=== PATIENT | male | born 1950 | race Caucasian/White ===

== ENCOUNTER → 2016-08-15 | Outpatient (CLI) | payer MEDICARE ==
[~2016-08-15] MED LIST: COREG3.125 MG PO; MULTIPLE VITAMI1 TAB PO
[2016-08-15 09:27] LABS: EST GLOM FILT AFRICAN AMERICAN > 60 ml/min
== END | disposition home or self-care (01) ==
LOC: CT 08:45 → LAB 08:45 → CT 09:00
PROVIDERS: Urology
DX: N20.0 Calculus of kidney (principal); R31.9 Hematuria, unspecified; R35.0 Frequency of micturition; N40.0 Benign prostatic hyperplasia without lower urinary tract symptoms; K76.89 Other specified diseases of liver; N21.1 Calculus in urethra

== ENCOUNTER → 2017-05-10 | Outpatient (CLI) | payer MEDICARE ==
[2017-05-10 10:02] LABS: BASO % 0.2 % (0.0-1.0); EOS # 0.1 10*3/uL (0.0-0.4); HEMATOCRIT 39.4 % (42.0-52.0); HEMOGLOBIN 13.2 g/dl (14.0-18.0); LYMPH # 1.1 10*3/uL (1.3-4.4); LYMPH % 20.7 % (27.0-41.0); MEAN CELL VOLUME 92.1 fl (80.0-94.0); MEAN CORPUSCULAR HGB 30.8 pg (27.0-31.0); MEAN CORPUSCULAR HGB CONC 33.5 g/dl (33.0-37.0); MEAN PLATELET VOLUME 10.4 fl (9.6-12.3); MONO # 0.4 10*3/uL (0.1-1.0); MONO % 7.2 % (3.0-9.0); NEUT # 3.6 10*3/uL (2.3-7.9); NEUT % 70.7 % (47.0-73.0); PLATELET COUNT AUTOMATED 163 10*3/uL (130-400); RED BLOOD COUNT 4.28 10*6/uL (4.50-5.90); RED CELL DISTRI WIDTH 12.8 % (0-14.5); WHITE BLOOD COUNT 5.1 10*3/uL (4.8-10.8)
[2017-05-10 10:05] LABS: ALBUMIN 3.9 gm/dl (3.1-4.5); ALKALINE PHOSPHATASE 81 U/L (45-117); BUN 16 mg/dl (7-24); CHLORIDE 106 mmol/L (98-107); CREATININE 1.11 mg/dL (0.70-1.30); SGOT/AST 15 IU/L (3-35); SGPT/ALT 21 U/L (12-78); SODIUM 140 mmol/L (136-145); TOTAL PROTEIN 7.5 gm/dL (6.4-8.2)
[2017-05-10 11:36] LABS: BILIRUBIN NEGATIVE (NEGATIVE); BLOOD TRACE-LYSED (NEGATIVE); CLARITY CLOUDY (CLEAR); COLOR YELLOW (YELLOW); GLUCOSE NEGATIVE (NEGATIVE); KETONE NEGATIVE (NEGATIVE); LEUKO ESTERASE 1+ (NEGATIVE); NITRITE NEGATIVE (NEGATIVE); PH 6.5 (5.0-9.0); SPECIFIC GRAVITY <= 1.005 (1.005-1.030)
[2017-05-10 12:31] LABS: RBC 16-20 rbc/hpf (0-2); WBC 51-100 wbc/hpf (0-5)
[2017-05-10 12:32] LABS: BACTERIA 3+; CALCIUM OXALATE CRYSTALS 1+
== END | disposition home or self-care (01) ==
LOC: CT 09:00 → LAB 09:00
PROVIDERS: Urology
DX: N20.0 Calculus of kidney (principal); D40.0 Neoplasm of uncertain behavior of prostate; I10 Essential (primary) hypertension; N39.0 Urinary tract infection, site not specified

== ENCOUNTER → 2018-11-13 | Outpatient (CLI) | payer MEDICARE | END | disposition home or self-care (01) | LOC: CT 15:46 | DX: K57.30 Diverticulosis of large intestine without perforation or abscess without bleeding (principal); N28.89 Other specified disorders of kidney and ureter; R31.9 Hematuria, unspecified; I10 Essential (primary) hypertension; N13.30 Unspecified hydronephrosis; N20.0 Calculus of kidney; N40.0 Benign prostatic hyperplasia without lower urinary tract symptoms ==

== ENCOUNTER → 2019-07-31 | Outpatient (CLI) | payer MEDICARE ==
[2019-07-31 11:21] LABS: BASO % 0.2 % (0.0-1.0); EOS % 0.7 % (1.0-4.0); LYMPH % 21.1 % (27.0-41.0); MEAN CELL VOLUME 78.4 fl (80.0-94.0); MEAN CORPUSCULAR HGB CONC 29.3 g/dl (33.0-37.0); MEAN PLATELET VOLUME 9.4 fl (9.6-12.3); MONO # 0.4 10*3/uL (0.1-1.0); MONO % 9.1 % (3.0-9.0); NEUT # 3.1 10*3/uL (2.3-7.9); NEUT % 68.7 % (47.0-73.0); PLATELET COUNT AUTOMATED 225 10*3/uL (130-400); RED CELL DISTRI WIDTH 22.6 % (0-14.5); RETICULOCYTE % 0.83 % (0.50-2.50); WHITE BLOOD COUNT 4.5 10*3/uL (4.8-10.8)
[2019-07-31 11:40] LABS: BILIRUBIN NEGATIVE (NEGATIVE); BLOOD TRACE-INTACT (NEGATIVE); CLARITY CLOUDY (CLEAR); COLOR YELLOW (YELLOW); GLUCOSE NEGATIVE (NEGATIVE); KETONE NEGATIVE (NEGATIVE); LEUKO ESTERASE 3+ (NEGATIVE); NITRITE NEGATIVE (NEGATIVE); SPECIFIC GRAVITY 1.025 (1.005-1.030); UROBILINOGEN 0.2 E.U./dl (0.2-1.0); WBC TNTC wbc/hpf (0-5)
[2019-07-31 11:41] LABS: BACTERIA 4+; MUCOUS 1+
[2019-07-31 11:48] LABS: ALKALINE PHOSPHATASE 72 U/L (45-117); BUN 22 mg/dl (7-24); CHLORIDE 108 mmol/L (98-107); CHOLESTEROL 178 mg/dL (<200); CREATININE 1.14 mg/dL (0.70-1.30); GAMMA GLUTAMYL TRANSPEPTIDASE 17 U/L (15-85); HDL CHOLESTEROL 76 mg/dl (40-60); IRON 25 ug/dL (65-175); LDL CHOLESTEROL 88 mg/dL (9-159); POTASSIUM 4.5 mmol/L (3.5-5.1); SGOT/AST 24 IU/L (3-35); SGPT/ALT 31 U/L (12-78); SODIUM 140 mmol/L (136-145); TOTAL IRON BINDING CAPACITY 426 ug/dl (250-450); TRIGLYCERIDES 71 mg/dl (<150); VLDL CHOLESTEROL 14 mg/dL (6-40)
[2019-07-31 11:55] LABS: CPK 102 U/L (39-308); THYROID STIM HORMONE (HS) 0.948 uIU/ml (0.358-4.75); TOTAL PROTEIN 7.8 gm/dL (6.4-8.2)
[2019-07-31 12:15] LABS: VITAMIN D, 25-HYDROXY 15.8 ng/mL (30-100)
[2019-07-31 12:16] LABS: FERRITIN 4.8 ng/mL (22.0-322.0)
== END | disposition home or self-care (01) ==
LOC: LAB 10:27
PROVIDERS: Family Medicine
DX: Z12.5 Encounter for screening for malignant neoplasm of prostate (principal); E55.9 Vitamin D deficiency, unspecified; R53.83 Other fatigue; R79.89 Other specified abnormal findings of blood chemistry; D40.0 Neoplasm of uncertain behavior of prostate

== ENCOUNTER → 2019-08-20 | Outpatient (CLI) | payer MEDICARE | END | disposition home or self-care (01) | LOC: CT 09:32 | DX: N21.0 Calculus in bladder (principal); N28.1 Cyst of kidney, acquired; K57.90 Diverticulosis of intestine, part unspecified, without perforation or abscess without bleeding; K40.90 Unilateral inguinal hernia, without obstruction or gangrene, not specified as recurrent; K76.89 Other specified diseases of liver; M47.816 Spondylosis without myelopathy or radiculopathy, lumbar region; Z90.49 Acquired absence of other specified parts of digestive tract ==

== ENCOUNTER → 2019-10-24 | Outpatient (CLI) | payer MEDICARE ==
[~2019-10-24] MED LIST changes: +AMLODIPINE BESY10 MG PO; +ATORVASTATIN CA10 M1 PO; +CARBIDOPA-LEVO1 EAC2 PO; +COZAAR25 M1 PO; +NEUPRO1 EAC4 TD
== END | disposition home or self-care (01) ==
LOC: COVID19 00:31
DX: Z11.59 Encounter for screening for other viral diseases (principal)

== ENCOUNTER → 2019-10-31 | Day surgery (SDC) | payer MEDICARE ==
[~2019-10-31] VITALS: Ht 180.3 cm; Wt 80.3 kg
[2019-10-31 07:30] VITALS: BP 137/64
[2019-10-31 08:57] VITALS: BP 124/84
[2019-10-31 09:12] VITALS: BP 137/86
[2019-10-31 09:27] VITALS: BP 136/88
--- NOTE | 2019-10-31 09:33 | NUR ---
iv fluids discontinued at 0927.
== END | disposition home or self-care (01) ==
LOC: SDC 10-27 08:45
DX: D64.9 Anemia, unspecified (principal); K57.30 Diverticulosis of large intestine without perforation or abscess without bleeding; K64.8 Other hemorrhoids; K44.9 Diaphragmatic hernia without obstruction or gangrene; K29.70 Gastritis, unspecified, without bleeding; I10 Essential (primary) hypertension; I48.91 Unspecified atrial fibrillation; E78.00 Pure hypercholesterolemia, unspecified; Z79.899 Other long term (current) drug therapy; Z98.890 Other specified postprocedural states

== ENCOUNTER → 2019-12-18 | Outpatient (CLI) | payer MEDICARE ==
[2019-12-18 11:21] LABS: BASO % 0.2 % (0.0-1.0); EOS # 0.1 10*3/uL (0.0-0.4); EOS % 1.8 % (1.0-4.0); LYMPH # 1.2 10*3/uL (1.3-4.4); LYMPH % 20.6 % (27.0-41.0); MEAN CELL VOLUME 84.3 fl (80.0-94.0); MEAN CORPUSCULAR HGB 25.6 pg (27.0-31.0); MEAN CORPUSCULAR HGB CONC 30.3 g/dl (33.0-37.0); MEAN PLATELET VOLUME 10.2 fl (9.6-12.3); MONO # 0.6 10*3/uL (0.1-1.0); MONO % 10.8 % (3.0-9.0); NEUT # 3.7 10*3/uL (2.3-7.9); NEUT % 66.2 % (47.0-73.0); PLATELET COUNT AUTOMATED 203 10*3/uL (130-400); RED BLOOD COUNT 3.44 10*6/uL (4.50-5.90); RED CELL DISTRI WIDTH 16.5 % (0-14.5); RETICULOCYTE % 0.95 % (0.50-2.50); WHITE BLOOD COUNT 5.6 10*3/uL (4.8-10.8)
[2019-12-18 11:50] LABS: ALBUMIN 3.6 gm/dl (3.1-4.5); BUN 23 mg/dl (7-24); CHLORIDE 109 mmol/L (98-107); CHOLESTEROL 126 mg/dL (<200); CREATININE 1.22 mg/dL (0.70-1.30); GAMMA GLUTAMYL TRANSPEPTIDASE 13 U/L (15-85); HDL CHOLESTEROL 57 mg/dl (40-60); IRON 25 ug/dL (65-175); LDL CHOLESTEROL 55 mg/dL (9-159); POTASSIUM 4.3 mmol/L (3.5-5.1); SGOT/AST 5 IU/L (3-35); SGPT/ALT 8 U/L (12-78); SODIUM 139 mmol/L (136-145); TOTAL IRON BINDING CAPACITY 399 ug/dl (250-450); TOTAL PROTEIN 7.4 gm/dL (6.4-8.2); TRIGLYCERIDES 69 mg/dl (<150); VLDL CHOLESTEROL 14 mg/dL (6-40)
[2019-12-18 11:56] LABS: ALKALINE PHOSPHATASE 66 U/L (45-117); THYROID STIM HORMONE (HS) 0.779 uIU/ml (0.358-4.75)
[2019-12-18 14:13] LABS: BILIRUBIN Negative (Negative); BLOOD Negative (Negative); CLARITY Cloudy (Clear); COLOR Dark Yellow (Yellow); GLUCOSE Negative (Negative); KETONE Trace (Negative); LEUKO ESTERASE 2+ (Negative); NITRITE Negative (Negative); UROBILINOGEN 0.2 E.U./dl (0.0-1.0)
[2019-12-18 15:03] LABS: BACTERIA 2+; WBC 51-100 wbc/hpf (0-5)
== END | disposition home or self-care (01) ==
LOC: LAB 10:44
PROVIDERS: ATTEND Family Medicine
DX: E78.5 Hyperlipidemia, unspecified (principal); R74.8 Abnormal levels of other serum enzymes; R79.89 Other specified abnormal findings of blood chemistry; R53.83 Other fatigue

== ENCOUNTER → 2020-01-16 | Outpatient (CLI) | payer MEDICARE ==
[2020-01-16 11:44] LABS: BASO % 0.2 % (0.0-1.0); EOS # 0.1 10*3/uL (0.0-0.4); EOS % 1.1 % (1.0-4.0); HEMATOCRIT 30.6 % (42.0-52.0); LYMPH # 0.8 10*3/uL (1.3-4.4); LYMPH % 11.3 % (27.0-41.0); MEAN CELL VOLUME 85.2 fl (80.0-94.0); MEAN CORPUSCULAR HGB 25.3 pg (27.0-31.0); MEAN CORPUSCULAR HGB CONC 29.7 g/dl (33.0-37.0); MEAN PLATELET VOLUME 9.6 fl (9.6-12.3); MONO # 0.7 10*3/uL (0.1-1.0); MONO % 10.6 % (3.0-9.0); NEUT # 5.1 10*3/uL (2.3-7.9); NEUT % 76.5 % (47.0-73.0); PLATELET COUNT AUTOMATED 234 10*3/uL (130-400); RED BLOOD COUNT 3.59 10*6/uL (4.50-5.90); RED CELL DISTRI WIDTH 16.4 % (0-14.5); WHITE BLOOD COUNT 6.6 10*3/uL (4.8-10.8)
== END | disposition home or self-care (01) ==
LOC: LAB 11:05
PROVIDERS: ATTEND Internal Medicine Gastroenterology
DX: D50.0 Iron deficiency anemia secondary to blood loss (chronic) (principal)

== ENCOUNTER → 2020-01-27 | Outpatient (CLI) | payer MEDICARE ==
[2020-01-28 13:11] LABS: PROSTATE SPECIFIC AG FREE 0.6 ng/mL; PROSTATE SPECIFIC AG, SERUM 4.8 ng/mL (0.0-4.0)
== END | disposition home or self-care (01) ==
LOC: LAB 09:56
PROVIDERS: ATTEND Urology
DX: C61 Malignant neoplasm of prostate (principal)

== ENCOUNTER → 2020-04-14 | Outpatient (CLI) | payer MEDICARE | END | disposition home or self-care (01) | LOC: RAD 14:13 | PROVIDERS: ATTEND Family Medicine | DX: S80.01XA Contusion of right knee, initial encounter (principal); M79.89 Other specified soft tissue disorders; X58.XXXA Exposure to other specified factors, initial encounter; Y93.89 Activity, other specified; Y92.89 Other specified places as the place of occurrence of the external cause; Y99.8 Other external cause status ==

== ENCOUNTER → 2020-06-03 | Outpatient (CLI) | payer MEDICARE ==
[2020-06-03 12:24] LABS: BASO % 0.3 % (0.0-1.0); EOS # 0.1 10*3/uL (0.0-0.4); EOS % 0.8 % (1.0-4.0); HEMATOCRIT 34.5 % (42.0-52.0); LYMPH % 16.4 % (27.0-41.0); MEAN CELL VOLUME 88.5 fl (80.0-94.0); MEAN CORPUSCULAR HGB CONC 32.8 g/dl (33.0-37.0); MONO # 0.6 10*3/uL (0.1-1.0); MONO % 9.4 % (3.0-9.0); NEUT # 4.3 10*3/uL (2.3-7.9); NEUT % 72.9 % (47.0-73.0); PLATELET COUNT AUTOMATED 185 10*3/uL (130-400); RED CELL DISTRI WIDTH 18.5 % (0-14.5); WHITE BLOOD COUNT 5.9 10*3/uL (4.8-10.8)
[2020-06-03 13:00] LABS: ALBUMIN 3.4 gm/dl (3.1-4.5); ALKALINE PHOSPHATASE 79 U/L (45-117); BUN 24 mg/dl (7-24); CHLORIDE 109 mmol/L (98-107); CREATININE 1.23 mg/dL (0.70-1.30); POTASSIUM 3.6 mmol/L (3.5-5.1); SGOT/AST 14 IU/L (3-35); SGPT/ALT 7 U/L (12-78); SODIUM 142 mmol/L (136-145); TOTAL PROTEIN 7.4 gm/dL (6.4-8.2)
[2020-06-04 13:07] LABS: PROSTATE SPECIFIC AG FREE 0.87 ng/mL; PROSTATE SPECIFIC AG, SERUM 6.3 ng/mL (0.0-4.0)
== END | disposition home or self-care (01) ==
LOC: LAB 11:44
PROVIDERS: ATTEND Urology
DX: C61 Malignant neoplasm of prostate (principal); R53.83 Other fatigue

== ENCOUNTER → 2020-07-23 | Outpatient (CLI) | payer MEDICARE ==
[2020-07-25 07:06] LABS: PROSTATE SPECIFIC AG FREE 1.47 ng/mL
== END | disposition home or self-care (01) ==
LOC: LAB 11:29
PROVIDERS: ATTEND Urology
DX: C61 Malignant neoplasm of prostate (principal)

== ENCOUNTER → 2020-08-11 | Outpatient (CLI) | payer MEDICARE ==
[2020-08-11 11:22] LABS: BASO % 0.2 % (0.0-1.0); EOS % 0.6 % (1.0-4.0); HEMATOCRIT 34.2 % (42.0-52.0); LYMPH # 0.9 10*3/uL (1.3-4.4); LYMPH % 14.2 % (27.0-41.0); MEAN CELL VOLUME 96.1 fl (80.0-94.0); MEAN CORPUSCULAR HGB 31.7 pg (27.0-31.0); MEAN PLATELET VOLUME 10.2 fl (9.6-12.3); MONO # 0.6 10*3/uL (0.1-1.0); MONO % 8.6 % (3.0-9.0); NEUT # 4.9 10*3/uL (2.3-7.9); NEUT % 75.5 % (47.0-73.0); PLATELET COUNT AUTOMATED 194 10*3/uL (130-400); RED BLOOD COUNT 3.56 10*6/uL (4.50-5.90); RED CELL DISTRI WIDTH 12.8 % (0-14.5); WHITE BLOOD COUNT 6.5 10*3/uL (4.8-10.8)
[2020-08-11 11:31] LABS: ACT PARTIAL THROMBO TIME 26.3 SECONDS (20.0-32.1)
[2020-08-11 11:51] LABS: ALBUMIN 3.6 gm/dl (3.1-4.5); ALKALINE PHOSPHATASE 75 U/L (45-117); BUN 38 mg/dl (7-24); CHLORIDE 107 mmol/L (98-107); CREATININE 1.48 mg/dL (0.70-1.30); POTASSIUM 3.8 mmol/L (3.5-5.1); SGOT/AST 13 IU/L (3-35); SODIUM 140 mmol/L (136-145); TOTAL PROTEIN 7.7 gm/dL (6.4-8.2)
[2020-08-11 11:52] LABS: SGPT/ALT < 6 U/L (12-78)
== END | disposition home or self-care (01) ==
LOC: LAB 10:53
PROVIDERS: ATTEND Urology
DX: Z01.818 Encounter for other preprocedural examination (principal); C61 Malignant neoplasm of prostate; D68.8 Other specified coagulation defects

== ENCOUNTER 2020-09-10 11:39 | Inpatient (IN) | payer MEDICARE ==
[~2020-09-10] VITALS: Ht 182.8 cm; Wt 81.6 kg
[~2020-09-10 11:39] MED LIST changes: +CARVEDILOL25 MG PO; +FINASTERIDE5 M1 PO; +HYDROCHLOROTH12.5 M2 PO; +LOSARTAN POTASS25 M1 PO; +OMEPRAZOLE MAGN20 MG PO; +RYTARY ER 61.21 EACH PO; +SERTRALINE HYDR25 MG PO; +STALEVO 200 TA1 EACH PO; +TAMSULOSIN HCL0.4 MG PO
[2020-09-10 18:34] VITALS: BP 125/70
[2020-09-10 20:00] VITALS: BP 125/70
[2020-09-11 06:18] LABS: ALBUMIN 2.9 gm/dl (3.1-4.5); ALKALINE PHOSPHATASE 61 U/L (45-117); BUN 5 mg/dl (7-24); CHLORIDE 106 mmol/L (98-107); POTASSIUM 3.6 mmol/L (3.5-5.1); SGOT/AST 16 IU/L (3-35); SGPT/ALT 18 U/L (12-78); SODIUM 137 mmol/L (136-145); TOTAL PROTEIN 6.5 gm/dL (6.4-8.2)
[2020-09-11 07:34] VITALS: BP 155/83
[2020-09-11 19:12] VITALS: BP 108/52
[2020-09-12 07:18] VITALS: BP 120/64
[2020-09-12 20:16] VITALS: BP 100/62
[2020-09-13 07:03] VITALS: BP 109/67
[2020-09-13 19:04] VITALS: BP 117/81
[2020-09-13 22:35] LABS: BILIRUBIN Negative (Negative); BLOOD 2+ (Negative); CLARITY Turbid (Clear); COLOR Orange (Yellow); GLUCOSE Negative (Negative); KETONE Negative (Negative); LEUKO ESTERASE 2+ (Negative); NITRITE Positive (Negative); UROBILINOGEN 0.2 E.U./dl (0.0-1.0)
[2020-09-13 22:47] LABS: BACTERIA 3+; RBC TNTC rbc/hpf (0-2); WBC TNTC wbc/hpf (0-5)
[2020-09-14] MEDS ORDERED: REMERON15 M2 PO (07:52)
[2020-09-14] MEDS ORDERED: RISPERIDONE M-TA1 MG BC (07:54)
[2020-09-14 08:20] LABS: BASO % 0.1 % (0.0-1.0); EOS % 0.4 % (1.0-4.0); HEMATOCRIT 33.6 % (42.0-52.0); LYMPH # 0.9 10*3/uL (1.3-4.4); LYMPH % 10.5 % (27.0-41.0); MEAN CELL VOLUME 97.4 fl (80.0-94.0); MEAN CORPUSCULAR HGB 31.9 pg (27.0-31.0); MEAN CORPUSCULAR HGB CONC 32.7 g/dl (33.0-37.0); MEAN PLATELET VOLUME 10.1 fl (9.6-12.3); MONO # 0.6 10*3/uL (0.1-1.0); MONO % 7.7 % (3.0-9.0); NEUT # 6.6 10*3/uL (2.3-7.9); NEUT % 80.6 % (47.0-73.0); PLATELET COUNT AUTOMATED 187 10*3/uL (130-400); RED BLOOD COUNT 3.45 10*6/uL (4.50-5.90); RED CELL DISTRI WIDTH 14.2 % (0-14.5); WHITE BLOOD COUNT 8.1 10*3/uL (4.8-10.8)
[2020-09-14 08:36] LABS: ALBUMIN 2.8 gm/dl (3.1-4.5); CREATININE 2.6 mg/dL (0.70-1.30); POTASSIUM 3.1 mmol/L (3.5-5.1); TOTAL PROTEIN 6.7 gm/dL (6.4-8.2)
[2020-09-14] MEDS ORDERED: NUPLAZID34 MG PO (13:35)
== END 2020-09-14 08:15 | disposition short-term general hospital (02) | DRG 56 ==
LOC: 3N 11:39
PROVIDERS: Internal Medicine; Registered Nurse; ADMIT Psychiatry & Neurology Psychiatry; ATTEND Psychiatry & Neurology Psychiatry
DX: G20 Parkinson's disease (principal); F02.80 Dementia in other diseases classified elsewhere, unspecified severity, without behavioral disturbance, psychotic disturbance, mood disturbance, and anxiety; G93.41 Metabolic encephalopathy; F63.81 Intermittent explosive disorder; E44.0 Moderate protein-calorie malnutrition; N39.0 Urinary tract infection, site not specified; E86.0 Dehydration; F32.9 Major depressive disorder, single episode, unspecified; D50.9 Iron deficiency anemia, unspecified; K21.9 Gastro-esophageal reflux disease without esophagitis; C61 Malignant neoplasm of prostate; D53.9 Nutritional anemia, unspecified; I10 Essential (primary) hypertension; I95.9 Hypotension, unspecified; E87.8 Other disorders of electrolyte and fluid balance, not elsewhere classified; R73.9 Hyperglycemia, unspecified; R80.9 Proteinuria, unspecified; R82.4 Acetonuria; R31.0 Gross hematuria; Z85.46 Personal history of malignant neoplasm of prostate; Z68.24 Body mass index [BMI] 24.0-24.9, adult

== ENCOUNTER 2020-09-14 08:23 | Inpatient (IN) | payer MEDICARE ==
[~2020-09-14] VITALS: Ht 180.3 cm; Wt 81.0 kg
[2020-09-14 08:20] VITALS: BP 99/53
[~2020-09-14 08:23] MED LIST changes: +REMERON15 M2 PO; +RISPERIDONE M-TA1 MG BC
[2020-09-14 12:00] VITALS: BP 112/57
[2020-09-14] MEDS ORDERED: NUPLAZID34 MG PO (13:35)
[2020-09-14 16:00] VITALS: BP 96/53
[2020-09-14 16:05] VITALS: BP 100/60
[2020-09-14 20:00] VITALS: BP 95/52
[2020-09-15] VITALS: BP 91/50
[2020-09-15 06:27] LABS: BASO % 0.1 % (0.0-1.0); EOS # 0.1 10*3/uL (0.0-0.4); EOS % 0.9 % (1.0-4.0); HEMATOCRIT 29.8 % (42.0-52.0); LYMPH % 15.2 % (27.0-41.0); MEAN CELL VOLUME 97.7 fl (80.0-94.0); MEAN CORPUSCULAR HGB 31.1 pg (27.0-31.0); MEAN CORPUSCULAR HGB CONC 31.9 g/dl (33.0-37.0); MEAN PLATELET VOLUME 10.3 fl (9.6-12.3); MONO # 0.7 10*3/uL (0.1-1.0); MONO % 10.9 % (3.0-9.0); NEUT # 4.8 10*3/uL (2.3-7.9); NEUT % 72.2 % (47.0-73.0); PLATELET COUNT AUTOMATED 143 10*3/uL (130-400); RED BLOOD COUNT 3.05 10*6/uL (4.50-5.90); RED CELL DISTRI WIDTH 13.9 % (0-14.5); WHITE BLOOD COUNT 6.7 10*3/uL (4.8-10.8)
[2020-09-15 06:57] LABS: POTASSIUM 3.1 mmol/L (3.5-5.1)
[2020-09-15 07:09] LABS: ALBUMIN 2.5 gm/dl (3.1-4.5); CREATININE 1.5 mg/dL (0.70-1.30); TOTAL PROTEIN 5.9 gm/dL (6.4-8.2)
[2020-09-15 08:00] VITALS: BP 96/51
[2020-09-15 12:00] VITALS: BP 102/59
[2020-09-15 16:00] VITALS: BP 148/80
[2020-09-15 20:00] VITALS: BP 151/79
[2020-09-16] VITALS: BP 144/73
[2020-09-16 08:00] VITALS: BP 155/71
[2020-09-16 09:02] LABS: CHLORIDE 111 mmol/L (98-107); POTASSIUM 3.7 mmol/L (3.5-5.1); SODIUM 142 mmol/L (136-145)
[2020-09-16 09:28] LABS: BUN 18 mg/dl (7-24); CREATININE 0.86 mg/dL (0.70-1.30)
[2020-09-16 12:00] VITALS: BP 115/62
[2020-09-16 16:00] VITALS: BP 121/74
[2020-09-16 20:00] VITALS: BP 124/74
[2020-09-17] VITALS: BP 127/68
[2020-09-17 05:46] LABS: BUN 19 mg/dl (7-24); CHLORIDE 110 mmol/L (98-107); CREATININE 0.75 mg/dL (0.70-1.30); POTASSIUM 3.6 mmol/L (3.5-5.1); SODIUM 141 mmol/L (136-145)
[2020-09-17 06:30] LABS: BASO % 0.3 % (0.0-1.0); EOS # 0.2 10*3/uL (0.0-0.4); EOS % 3.3 % (1.0-4.0); HEMATOCRIT 28.1 % (42.0-52.0); LYMPH % 16.3 % (27.0-41.0); MEAN CELL VOLUME 98.3 fl (80.0-94.0); MEAN CORPUSCULAR HGB 31.5 pg (27.0-31.0); MEAN PLATELET VOLUME 10.4 fl (9.6-12.3); MONO # 0.7 10*3/uL (0.1-1.0); MONO % 11.4 % (3.0-9.0); NEUT # 4.2 10*3/uL (2.3-7.9); NEUT % 68.2 % (47.0-73.0); PLATELET COUNT AUTOMATED 125 10*3/uL (130-400); RED BLOOD COUNT 2.86 10*6/uL (4.50-5.90); RED CELL DISTRI WIDTH 13.8 % (0-14.5); WHITE BLOOD COUNT 6.1 10*3/uL (4.8-10.8)
[2020-09-17 08:00] VITALS: BP 123/75
[2020-09-17 12:00] VITALS: BP 78/50
[2020-09-17 16:00] VITALS: BP 110/51
[2020-09-17 20:00] VITALS: BP 102/64
[2020-09-18] VITALS: BP 131/83
[2020-09-18 08:00] VITALS: BP 117/71
[2020-09-18 12:00] VITALS: BP 107/75
[2020-09-18 16:00] VITALS: BP 114/57
[2020-09-18 20:00] VITALS: BP 107/69
[2020-09-19] VITALS: BP 126/74
[2020-09-19 08:00] VITALS: BP 120/72
[2020-09-19 16:00] VITALS: BP 106/66
[2020-09-19 20:00] VITALS: BP 98/60
[2020-09-20] VITALS: BP 117/70
[2020-09-20 05:46] LABS: BUN 26 mg/dl (7-24); CHLORIDE 109 mmol/L (98-107); CREATININE 0.91 mg/dL (0.70-1.30); POTASSIUM 3.8 mmol/L (3.5-5.1); SODIUM 140 mmol/L (136-145)
[2020-09-20 06:14] LABS: BASO % 0.4 % (0.0-1.0); EOS # 0.1 10*3/uL (0.0-0.4); EOS % 2.1 % (1.0-4.0); HEMATOCRIT 31.2 % (42.0-52.0); LYMPH # 0.9 10*3/uL (1.3-4.4); LYMPH % 15.4 % (27.0-41.0); MEAN CELL VOLUME 101.3 fl (80.0-94.0); MEAN CORPUSCULAR HGB 31.2 pg (27.0-31.0); MEAN CORPUSCULAR HGB CONC 30.8 g/dl (33.0-37.0); MEAN PLATELET VOLUME 10.7 fl (9.6-12.3); MONO # 0.7 10*3/uL (0.1-1.0); MONO % 11.6 % (3.0-9.0); NEUT # 3.9 10*3/uL (2.3-7.9); PLATELET COUNT AUTOMATED 148 10*3/uL (130-400); RED BLOOD COUNT 3.08 10*6/uL (4.50-5.90); RED CELL DISTRI WIDTH 13.6 % (0-14.5); WHITE BLOOD COUNT 5.6 10*3/uL (4.8-10.8)
[2020-09-20 08:00] VITALS: BP 80/46
[2020-09-20 12:00] VITALS: BP 80/40
[2020-09-20 16:47] VITALS: BP 116/56
[2020-09-20 20:00] VITALS: BP 122/64
[2020-09-21] VITALS: BP 109/54
[2020-09-21 08:00] VITALS: BP 98/50
[2020-09-21 12:00] VITALS: BP 90/68
[2020-09-21 16:00] VITALS: BP 137/77
[2020-09-21 20:00] VITALS: BP 100/50
[2020-09-22] VITALS: BP 131/62
[2020-09-22 08:00] VITALS: BP 140/82
[2020-09-22 12:00] VITALS: BP 100/54
[2020-09-22] MEDS ORDERED: RIVASTIGMINE1 EAC1 T (12:37)
[2020-09-22] MEDS ORDERED: XARE15TA PO (12:41)
[2020-09-22 16:00] VITALS: BP 140/72
[2020-09-22 20:00] VITALS: BP 155/74
== END 2020-09-22 21:12 | DRG 314 ==
LOC: 4E 08:23
PROVIDERS: Family Medicine; Internal Medicine; Registered Nurse; ADMIT Internal Medicine; ATTEND Internal Medicine
DX: I95.9 Hypotension, unspecified (principal); N17.0 Acute kidney failure with tubular necrosis; G93.41 Metabolic encephalopathy; E43 Unspecified severe protein-calorie malnutrition; I82.401 Acute embolism and thrombosis of unspecified deep veins of right lower extremity; N30.01 Acute cystitis with hematuria; F23 Brief psychotic disorder; E86.0 Dehydration; C61 Malignant neoplasm of prostate; G20 Parkinson's disease; F02.80 Dementia in other diseases classified elsewhere, unspecified severity, without behavioral disturbance, psychotic disturbance, mood disturbance, and anxiety; Z20.822 Contact with and (suspected) exposure to COVID-19; F63.81 Intermittent explosive disorder; E87.6 Hypokalemia; D53.9 Nutritional anemia, unspecified; K21.9 Gastro-esophageal reflux disease without esophagitis; Z79.899 Other long term (current) drug therapy

== ENCOUNTER 2020-09-23 08:02 | Inpatient (IN) | payer MEDICARE ==
[~2020-09-23] VITALS: Ht 180.3 cm; Wt 84.4 kg
[2020-09-23] VITALS (7 sets, daily range): BP systolic 116–151; BP diastolic 61–88
[~2020-09-23 08:02] MED LIST changes: +NUPLAZID34 MG PO; +RIVASTIGMINE1 EAC1 T; +XARE15TA PO
[2020-09-23 08:52] LABS: BILIRUBIN Negative (Negative); BLOOD 2+ (Negative); CLARITY Clear (Clear); COLOR Yellow (Yellow); GLUCOSE Negative (Negative); KETONE Negative (Negative); LEUKO ESTERASE Trace (Negative); NITRITE Negative (Negative); UROBILINOGEN 0.2 E.U./dl (0.0-1.0)
[2020-09-23 08:58] LABS: BASO % 0.3 % (0.0-1.0); EOS # 0.1 10*3/uL (0.0-0.4); EOS % 2.2 % (1.0-4.0); HEMATOCRIT 29.3 % (42.0-52.0); LYMPH # 0.8 10*3/uL (1.3-4.4); LYMPH % 13.6 % (27.0-41.0); MEAN CELL VOLUME 97.7 fl (80.0-94.0); MEAN CORPUSCULAR HGB CONC 31.7 g/dl (33.0-37.0); MEAN PLATELET VOLUME 9.9 fl (9.6-12.3); MONO # 0.5 10*3/uL (0.1-1.0); MONO % 8.7 % (3.0-9.0); NEUT # 4.4 10*3/uL (2.3-7.9); NEUT % 74.5 % (47.0-73.0); PLATELET COUNT AUTOMATED 209 10*3/uL (130-400); RED CELL DISTRI WIDTH 13.7 % (0-14.5); WHITE BLOOD COUNT 5.9 10*3/uL (4.8-10.8)
[2020-09-23 09:06] LABS: BACTERIA 1+; RBC 41-50 rbc/hpf (0-2); WBC 31-40 wbc/hpf (0-5)
[2020-09-23 09:14] LABS: ALBUMIN 2.6 gm/dl (3.1-4.5); ALKALINE PHOSPHATASE 66 U/L (45-117); BUN 17 mg/dl (7-24); CHLORIDE 108 mmol/L (98-107); CREATININE 0.76 mg/dL (0.70-1.30); POTASSIUM 4.1 mmol/L (3.5-5.1); SGOT/AST 23 IU/L (3-35); SGPT/ALT 12 U/L (12-78); SODIUM 139 mmol/L (136-145); TOTAL PROTEIN 6.2 gm/dL (6.4-8.2)
[2020-09-23 09:22] LABS: TROPONIN I < 0.015 ng/ml (<0.045)
[2020-09-24] VITALS: BP 126/96
[2020-09-24 07:24] LABS: ALBUMIN 2.6 gm/dl (3.1-4.5); BUN 15 mg/dl (7-24); CHLORIDE 109 mmol/L (98-107); CREATININE 0.87 mg/dL (0.70-1.30); SGOT/AST 36 IU/L (3-35); SGPT/ALT 63 U/L (12-78); SODIUM 141 mmol/L (136-145); TOTAL PROTEIN 6.4 gm/dL (6.4-8.2)
[2020-09-24 07:25] LABS: ALKALINE PHOSPHATASE 72 U/L (45-117)
[2020-09-24 07:28] LABS: BASO % 0.2 % (0.0-1.0); EOS # 0.1 10*3/uL (0.0-0.4); LYMPH # 0.9 10*3/uL (1.3-4.4); LYMPH % 13.5 % (27.0-41.0); MEAN CELL VOLUME 98.7 fl (80.0-94.0); MEAN CORPUSCULAR HGB 31.3 pg (27.0-31.0); MEAN CORPUSCULAR HGB CONC 31.7 g/dl (33.0-37.0); MEAN PLATELET VOLUME 9.9 fl (9.6-12.3); MONO # 0.6 10*3/uL (0.1-1.0); MONO % 9.6 % (3.0-9.0); NEUT # 4.7 10*3/uL (2.3-7.9); NEUT % 73.8 % (47.0-73.0); PLATELET COUNT AUTOMATED 232 10*3/uL (130-400); RED BLOOD COUNT 3.04 10*6/uL (4.50-5.90); RED CELL DISTRI WIDTH 14.1 % (0-14.5); WHITE BLOOD COUNT 6.4 10*3/uL (4.8-10.8)
[2020-09-24 07:36] LABS: ACT PARTIAL THROMBO TIME 28.9 SECONDS (20.0-32.1); INTERNATIONAL NORM RATIO 1.1 (2.0-3.5)
[2020-09-24 08:00] VITALS: BP 143/64
[2020-09-24 12:00] VITALS: BP 97/54
[2020-09-24 16:00] VITALS: BP 163/72
[2020-09-24 20:00] VITALS: BP 124/59
[2020-09-25] VITALS: BP 144/81
[2020-09-25 08:00] VITALS: BP 143/63
[2020-09-25 12:00] VITALS: BP 81/42
[2020-09-25 15:20] VITALS: BP 88/44
[2020-09-25 16:00] VITALS: BP 101/63
[2020-09-26] VITALS: BP 90/58
[2020-09-26 05:54] LABS: ALBUMIN 2.5 gm/dl (3.1-4.5); BUN 18 mg/dl (7-24); CHLORIDE 112 mmol/L (98-107); POTASSIUM 3.8 mmol/L (3.5-5.1); SGOT/AST 39 IU/L (3-35); SGPT/ALT 24 U/L (12-78); SODIUM 142 mmol/L (136-145)
[2020-09-26 05:56] LABS: ALKALINE PHOSPHATASE 76 U/L (45-117)
[2020-09-26 06:21] LABS: BASO % 0.3 % (0.0-1.0); EOS # 0.1 10*3/uL (0.0-0.4); EOS % 2.1 % (1.0-4.0); HEMATOCRIT 29.7 % (42.0-52.0); LYMPH % 14.3 % (27.0-41.0); MEAN CELL VOLUME 100.3 fl (80.0-94.0); MEAN CORPUSCULAR HGB 31.1 pg (27.0-31.0); MEAN PLATELET VOLUME 9.9 fl (9.6-12.3); MONO # 0.6 10*3/uL (0.1-1.0); MONO % 8.9 % (3.0-9.0); NEUT % 73.2 % (47.0-73.0); PLATELET COUNT AUTOMATED 244 10*3/uL (130-400); RED BLOOD COUNT 2.96 10*6/uL (4.50-5.90); RED CELL DISTRI WIDTH 13.9 % (0-14.5); WHITE BLOOD COUNT 6.8 10*3/uL (4.8-10.8)
[2020-09-26 08:00] VITALS: BP 142/72
[2020-09-26 16:00] VITALS: BP 155/79
[2020-09-27] VITALS: BP 144/70
[2020-09-27 06:00] LABS: BASO % 0.2 % (0.0-1.0); EOS # 0.2 10*3/uL (0.0-0.4); EOS % 3.7 % (1.0-4.0); HEMATOCRIT 28.8 % (42.0-52.0); LYMPH # 1.1 10*3/uL (1.3-4.4); LYMPH % 19.5 % (27.0-41.0); MEAN CELL VOLUME 97.6 fl (80.0-94.0); MEAN CORPUSCULAR HGB 31.2 pg (27.0-31.0); MEAN CORPUSCULAR HGB CONC 31.9 g/dl (33.0-37.0); MEAN PLATELET VOLUME 9.7 fl (9.6-12.3); MONO # 0.5 10*3/uL (0.1-1.0); MONO % 9.1 % (3.0-9.0); NEUT # 3.8 10*3/uL (2.3-7.9); NEUT % 66.5 % (47.0-73.0); PLATELET COUNT AUTOMATED 244 10*3/uL (130-400); RED BLOOD COUNT 2.95 10*6/uL (4.50-5.90); RED CELL DISTRI WIDTH 13.8 % (0-14.5); WHITE BLOOD COUNT 5.7 10*3/uL (4.8-10.8)
[2020-09-27 06:20] LABS: ALBUMIN 2.5 gm/dl (3.1-4.5); ALKALINE PHOSPHATASE 70 U/L (45-117); BUN 12 mg/dl (7-24); CHLORIDE 111 mmol/L (98-107); CREATININE 0.85 mg/dL (0.70-1.30); POTASSIUM 3.5 mmol/L (3.5-5.1); SGOT/AST 34 IU/L (3-35); SGPT/ALT 12 U/L (12-78); SODIUM 141 mmol/L (136-145); TOTAL PROTEIN 6.1 gm/dL (6.4-8.2)
[2020-09-27 08:00] VITALS: BP 130/76
[2020-09-27 16:00] VITALS: BP 130/68
[2020-09-27 20:00] VITALS: BP 100/59
[2020-09-28] VITALS: BP 123/89
[2020-09-28 08:00] VITALS: BP 126/72
[2020-09-28 16:00] VITALS: BP 134/70
[2020-09-28 20:00] VITALS: BP 125/58
[2020-09-29] VITALS: BP 129/60
[2020-09-29 08:00] VITALS: BP 148/84; BP 157/85
[2020-09-29] MEDS ORDERED: Carafate1 GM PO (11:35)
[2020-09-29] MEDS ORDERED: PANTOPRAZOLE SO40 MG PO (11:35)
[2020-09-29 12:00] VITALS: BP 114/68; BP 90/58
== END 2020-09-29 16:52 | DRG 813 ==
LOC: ED 08:02 → EDHOLD 11:50 → 5E 11:50
PROVIDERS: Emergency Medicine; Internal Medicine; Student in an Organized Health Care Education/Training Program; ADMIT Internal Medicine; ATTEND Internal Medicine
DX: D68.32 Hemorrhagic disorder due to extrinsic circulating anticoagulants (principal); E43 Unspecified severe protein-calorie malnutrition; K92.2 Gastrointestinal hemorrhage, unspecified; I82.452 Acute embolism and thrombosis of left peroneal vein; I82.442 Acute embolism and thrombosis of left tibial vein; I82.541 Chronic embolism and thrombosis of right tibial vein; I82.551 Chronic embolism and thrombosis of right peroneal vein; Z20.822 Contact with and (suspected) exposure to COVID-19; R70.0 Elevated erythrocyte sedimentation rate; R00.1 Bradycardia, unspecified; E87.8 Other disorders of electrolyte and fluid balance, not elsewhere classified; C61 Malignant neoplasm of prostate; K21.9 Gastro-esophageal reflux disease without esophagitis; T45.515A Adverse effect of anticoagulants, initial encounter; G20 Parkinson's disease; D53.9 Nutritional anemia, unspecified; F02.80 Dementia in other diseases classified elsewhere, unspecified severity, without behavioral disturbance, psychotic disturbance, mood disturbance, and anxiety; D50.9 Iron deficiency anemia, unspecified; I10 Essential (primary) hypertension; R73.9 Hyperglycemia, unspecified; Z90.49 Acquired absence of other specified parts of digestive tract; Z79.899 Other long term (current) drug therapy; Y92.89 Other specified places as the place of occurrence of the external cause; Z68.25 Body mass index [BMI] 25.0-25.9, adult

== ENCOUNTER 2020-10-21 15:12 | Inpatient (IN) | payer MEDICARE ==
[~2020-10-21] VITALS: Ht 167.6 cm; Wt 79.8 kg
[~2020-10-21 15:12] MED LIST changes: +Carafate1 GM PO; +PANTOPRAZOLE SO40 MG PO
[2020-10-21 15:15] VITALS: BP 132/77
[2020-10-21 16:20] LABS: BASO % 0.2 % (0.0-1.0); EOS # 0.1 10*3/uL (0.0-0.4); HEMATOCRIT 33.2 % (42.0-52.0); LYMPH % 21.9 % (27.0-41.0); MEAN CELL VOLUME 99.4 fl (80.0-94.0); MEAN CORPUSCULAR HGB 31.4 pg (27.0-31.0); MEAN CORPUSCULAR HGB CONC 31.6 g/dl (33.0-37.0); MEAN PLATELET VOLUME 10.2 fl (9.6-12.3); MONO # 0.4 10*3/uL (0.1-1.0); MONO % 9.6 % (3.0-9.0); NEUT # 2.9 10*3/uL (2.3-7.9); NEUT % 65.9 % (47.0-73.0); PLATELET COUNT AUTOMATED 178 10*3/uL (130-400); RED BLOOD COUNT 3.34 10*6/uL (4.50-5.90); RED CELL DISTRI WIDTH 14.5 % (0-14.5); WHITE BLOOD COUNT 4.5 10*3/uL (4.8-10.8)
[2020-10-21 16:40] LABS: ALBUMIN 3.4 gm/dl (3.1-4.5); ALKALINE PHOSPHATASE 83 U/L (45-117); BUN 22 mg/dl (7-24); CHLORIDE 111 mmol/L (98-107); CREATININE 1.25 mg/dL (0.70-1.30); SGOT/AST 17 IU/L (3-35); SGPT/ALT 10 U/L (12-78); SODIUM 142 mmol/L (136-145); TOTAL PROTEIN 7.1 gm/dL (6.4-8.2)
[2020-10-21] MEDS ORDERED: HYDROXYZINE HCL25 MG PO (21:55)
[2020-10-21] MEDS ORDERED: NEUPRO1 EAC4 TD (21:57)
[2020-10-21] MEDS ORDERED: QUETIAPINE FUMA25 M1 PO (22:00)
[2020-10-21] MEDS ORDERED: SEROQUEL25 MG PO (22:01)
[2020-10-21] MEDS ORDERED: SEROQUEL50 MG PO (22:03)
[2020-10-21 22:36] LABS: BILIRUBIN Negative (Negative); BLOOD 3+ (Negative); CLARITY Cloudy (Clear); COLOR Yellow (Yellow); GLUCOSE Negative (Negative); KETONE Negative (Negative); LEUKO ESTERASE 3+ (Negative); NITRITE Negative (Negative)
[2020-10-21 22:54] LABS: BACTERIA 1+; RBC 41-50 rbc/hpf (0-2); WBC 41-50 wbc/hpf (0-5)
[2020-10-21 23:01] VITALS: BP 132/77
[2020-10-22 06:42] LABS: BASO % 0.2 % (0.0-1.0); EOS # 0.1 10*3/uL (0.0-0.4); EOS % 2.1 % (1.0-4.0); HEMATOCRIT 36.6 % (42.0-52.0); LYMPH # 0.4 10*3/uL (1.3-4.4); LYMPH % 8.6 % (27.0-41.0); MEAN CELL VOLUME 98.9 fl (80.0-94.0); MEAN CORPUSCULAR HGB 31.6 pg (27.0-31.0); MONO # 0.3 10*3/uL (0.1-1.0); MONO % 6.8 % (3.0-9.0); NEUT % 81.9 % (47.0-73.0); PLATELET COUNT AUTOMATED 180 10*3/uL (130-400); RED CELL DISTRI WIDTH 14.6 % (0-14.5); WHITE BLOOD COUNT 4.9 10*3/uL (4.8-10.8)
[2020-10-22 07:10] LABS: ALBUMIN 3.3 gm/dl (3.1-4.5); ALKALINE PHOSPHATASE 83 U/L (45-117); BUN 15 mg/dl (7-24); CHLORIDE 110 mmol/L (98-107); CHOLESTEROL 187 mg/dL (<200); CREATININE 0.99 mg/dL (0.70-1.30); LDL CHOLESTEROL 115 mg/dL (9-159); POTASSIUM 3.7 mmol/L (3.5-5.1); SGOT/AST 14 IU/L (3-35); SGPT/ALT 10 U/L (12-78); SODIUM 143 mmol/L (136-145); TOTAL PROTEIN 7.2 gm/dL (6.4-8.2); TRIGLYCERIDES 76 mg/dl (<150)
[2020-10-22 07:49] VITALS: BP 130/72
[2020-10-22 08:39] LABS: VITAMIN D, 25-HYDROXY 23.6 ng/mL (30-100)
[2020-10-22 20:00] VITALS: BP 123/63
[2020-10-23 07:24] VITALS: BP 121/56
[2020-10-23 20:00] VITALS: BP 142/86
[2020-10-24 07:51] VITALS: BP 145/81
[2020-10-24 20:00] VITALS: BP 122/64
[2020-10-25 08:00] VITALS: BP 141/86
[2020-10-25 20:00] VITALS: BP 100/54
[2020-10-26 07:06] VITALS: BP 134/74
[2020-10-26 10:41] LABS: BASO % 0.2 % (0.0-1.0); EOS # 0.1 10*3/uL (0.0-0.4); HEMATOCRIT 39.9 % (42.0-52.0); LYMPH # 0.8 10*3/uL (1.3-4.4); MEAN CELL VOLUME 98.5 fl (80.0-94.0); MEAN CORPUSCULAR HGB 30.9 pg (27.0-31.0); MEAN CORPUSCULAR HGB CONC 31.3 g/dl (33.0-37.0); MONO # 0.4 10*3/uL (0.1-1.0); MONO % 8.5 % (3.0-9.0); NEUT # 3.9 10*3/uL (2.3-7.9); NEUT % 74.7 % (47.0-73.0); PLATELET COUNT AUTOMATED 158 10*3/uL (130-400); RED BLOOD COUNT 4.05 10*6/uL (4.50-5.90); RED CELL DISTRI WIDTH 14.2 % (0-14.5); WHITE BLOOD COUNT 5.2 10*3/uL (4.8-10.8)
[2020-10-26 10:55] LABS: ALKALINE PHOSPHATASE 75 U/L (45-117); BUN 23 mg/dl (7-24); CHLORIDE 107 mmol/L (98-107); CREATININE 1.09 mg/dL (0.70-1.30); POTASSIUM 3.8 mmol/L (3.5-5.1); SGOT/AST 12 IU/L (3-35); SGPT/ALT 22 U/L (12-78); SODIUM 141 mmol/L (136-145); TOTAL PROTEIN 7.1 gm/dL (6.4-8.2)
[2020-10-26 19:36] VITALS: BP 136/76
[2020-10-27 07:24] VITALS: BP 136/76
[2020-10-27 20:00] VITALS: BP 105/60
[2020-10-28 07:26] VITALS: BP 131/80
[2020-10-28 20:00] VITALS: BP 108/68
[2020-10-29 07:20] VITALS: BP 165/82
[2020-10-29] MEDS ORDERED: VITAMIN D3125 MC1 PO (09:43)
[2020-10-29] MEDS ORDERED: MIRTAZAPINE45 MG PO (09:54)
[2020-10-29] MEDS ORDERED: RIVASTIGMINE1 EAC2 T (09:54)
[2020-10-29] MEDS ORDERED: B121000 MCG/1 IM (09:54)
[2020-10-29] MEDS ORDERED: MEMANTINE HCL10 MG PO (10:00)
[2020-10-29] MEDS ORDERED: DIVALPROEX SOD125 M1 PO ×2 (10:20)
== END 2020-10-29 11:45 | DRG 883 ==
LOC: ED 15:12 → 3N 18:51
PROVIDERS: Counselor Professional; Internal Medicine; ADMIT Psychiatry & Neurology Psychiatry; ATTEND Psychiatry & Neurology Psychiatry
DX: F63.81 Intermittent explosive disorder (principal); B95.2 Enterococcus as the cause of diseases classified elsewhere; F23 Brief psychotic disorder; N30.00 Acute cystitis without hematuria; G20 Parkinson's disease; F02.80 Dementia in other diseases classified elsewhere, unspecified severity, without behavioral disturbance, psychotic disturbance, mood disturbance, and anxiety; C61 Malignant neoplasm of prostate; Z20.822 Contact with and (suspected) exposure to COVID-19; Z66 Do not resuscitate; Z51.5 Encounter for palliative care; K21.9 Gastro-esophageal reflux disease without esophagitis; I10 Essential (primary) hypertension; D72.819 Decreased white blood cell count, unspecified; E87.8 Other disorders of electrolyte and fluid balance, not elsewhere classified; D53.9 Nutritional anemia, unspecified; S91.302A Unspecified open wound, left foot, initial encounter; S81.012A Laceration without foreign body, left knee, initial encounter; X58.XXXA Exposure to other specified factors, initial encounter; Z90.49 Acquired absence of other specified parts of digestive tract; Y93.89 Activity, other specified; Y92.89 Other specified places as the place of occurrence of the external cause; Y99.8 Other external cause status

== ENCOUNTER 2020-11-05 04:55 | Emergency (ER) | payer MEDICARE ==
[~2020-11-05] VITALS: Ht 182.8 cm; Wt 86.2 kg
[~2020-11-05 04:55] MED LIST changes: +B121000 MCG/1 IM; +DIVALPROEX SOD125 M1 PO; +HYDROXYZINE HCL25 MG PO; +MEMANTINE HCL10 MG PO; +MIRTAZAPINE45 MG PO; +QUETIAPINE FUMA25 M1 PO; +RIVASTIGMINE1 EAC2 T; +SEROQUEL25 MG PO; +SEROQUEL50 MG PO; +VITAMIN D3125 MC1 PO
[2020-11-05 05:45] LABS: ALBUMIN 3.2 gm/dl (3.1-4.5); ALKALINE PHOSPHATASE 76 U/L (45-117); BUN 19 mg/dl (7-24); CHLORIDE 107 mmol/L (98-107); CREATININE 1.05 mg/dL (0.70-1.30); POTASSIUM 3.8 mmol/L (3.5-5.1); SGOT/AST 14 IU/L (3-35); SGPT/ALT 10 U/L (12-78); SODIUM 141 mmol/L (136-145); TOTAL PROTEIN 6.9 gm/dL (6.4-8.2)
[2020-11-05 05:46] LABS: ACETAMINOPHEN (TYLENOL) < 5.0 ug/ml (10-30); ETHYL ALCOHOL < 3.0 mg/dl (<3)
[2020-11-05 06:01] LABS: BASO % 0.2 % (0.0-1.0); EOS # 0.1 10*3/uL (0.0-0.4); EOS % 1.1 % (1.0-4.0); HEMATOCRIT 33.9 % (42.0-52.0); LYMPH # 1.2 10*3/uL (1.3-4.4); LYMPH % 25.2 % (27.0-41.0); MEAN CELL VOLUME 96.6 fl (80.0-94.0); MEAN CORPUSCULAR HGB 30.8 pg (27.0-31.0); MEAN CORPUSCULAR HGB CONC 31.9 g/dl (33.0-37.0); MONO # 0.4 10*3/uL (0.1-1.0); MONO % 9.6 % (3.0-9.0); NEUT # 2.9 10*3/uL (2.3-7.9); NEUT % 63.2 % (47.0-73.0); PLATELET COUNT AUTOMATED 189 10*3/uL (130-400); RED BLOOD COUNT 3.51 10*6/uL (4.50-5.90); RED CELL DISTRI WIDTH 13.6 % (0-14.5); WHITE BLOOD COUNT 4.6 10*3/uL (4.8-10.8)
[2020-11-05 07:27] LABS: BILIRUBIN Negative (Negative); BLOOD 1+ (Negative); CLARITY Clear (Clear); COLOR Yellow (Yellow); GLUCOSE Negative (Negative); KETONE Negative (Negative); LEUKO ESTERASE 3+ (Negative); NITRITE Negative (Negative); PH 7.5 (4.5-8.0); UROBILINOGEN 0.2 E.U./dl (0.0-1.0)
[2020-11-05 07:42] LABS: WBC 31-40 wbc/hpf (0-5)
[2020-11-05] MEDS ORDERED: AMOXICILLIN500 M3 PO (07:52)
== END 2020-11-05 08:40 ==
LOC: ED 04:55
PROVIDERS: Emergency Medicine
DX: G20 Parkinson's disease (principal); F02.80 Dementia in other diseases classified elsewhere, unspecified severity, without behavioral disturbance, psychotic disturbance, mood disturbance, and anxiety; K21.9 Gastro-esophageal reflux disease without esophagitis; I10 Essential (primary) hypertension; Z79.899 Other long term (current) drug therapy

== ENCOUNTER 2020-12-13 08:43 | Inpatient (IN) | payer MEDICARE ==
[~2020-12-13] VITALS: Ht 172.7 cm; Wt 80.3 kg
[~2020-12-13 08:43] MED LIST changes: +AMOXICILLIN500 M3 PO
[2020-12-13 09:06] VITALS: BP 139/68
[2020-12-13 09:12] LABS: BASO % 0.2 % (0.0-1.0); EOS # 0.2 10*3/uL (0.0-0.4); EOS % 2.7 % (1.0-4.0); HEMATOCRIT 33.1 % (42.0-52.0); LYMPH % 18.5 % (27.0-41.0); MEAN CELL VOLUME 95.7 fl (80.0-94.0); MEAN CORPUSCULAR HGB 31.8 pg (27.0-31.0); MEAN CORPUSCULAR HGB CONC 33.2 g/dl (33.0-37.0); MEAN PLATELET VOLUME 10.6 fl (9.6-12.3); MONO # 0.5 10*3/uL (0.1-1.0); MONO % 8.8 % (3.0-9.0); NEUT # 3.9 10*3/uL (2.3-7.9); NEUT % 69.4 % (47.0-73.0); PLATELET COUNT AUTOMATED 176 10*3/uL (130-400); RED BLOOD COUNT 3.46 10*6/uL (4.50-5.90); RED CELL DISTRI WIDTH 14.6 % (0-14.5); WHITE BLOOD COUNT 5.6 10*3/uL (4.8-10.8)
[2020-12-13 09:25] LABS: ACT PARTIAL THROMBO TIME 26.8 SECONDS (20.0-32.1)
[2020-12-13 09:27] LABS: ALBUMIN 3.2 gm/dl (3.1-4.5); ALKALINE PHOSPHATASE 65 U/L (45-117); BUN 42 mg/dl (7-24); CHLORIDE 111 mmol/L (98-107); LIPASE 232 U/L (73-393); POTASSIUM 3.7 mmol/L (3.5-5.1); SGOT/AST 16 IU/L (3-35); SGPT/ALT 9 U/L (12-78); SODIUM 144 mmol/L (136-145); TOTAL PROTEIN 7.3 gm/dL (6.4-8.2)
[2020-12-13 09:28] LABS: TROPONIN I < 0.015 ng/ml (<0.045); VALPROIC ACID (DEPAKENE) < 3.0 ug/ml (50-100)
[2020-12-13 11:35] LABS: BILIRUBIN Negative (Negative); BLOOD 3+ (Negative); CLARITY Turbid (Clear); COLOR Orange (Yellow); GLUCOSE Negative (Negative); KETONE Negative (Negative); NITRITE Negative (Negative); PH 5.5 (4.5-8.0); UROBILINOGEN 0.2 E.U./dl (0.0-1.0)
[2020-12-13 11:43] LABS: LEUKO ESTERASE 3+ (Negative)
[2020-12-13 11:52] LABS: BACTERIA 3+; RBC TNTC rbc/hpf (0-2); WBC TNTC wbc/hpf (0-5)
[2020-12-13 19:33] VITALS: BP 156/88
[2020-12-14 01:53] VITALS: BP 148/91
[2020-12-14 06:29] LABS: BASO % 0.2 % (0.0-1.0); EOS # 0.2 10*3/uL (0.0-0.4); EOS % 2.6 % (1.0-4.0); HEMATOCRIT 39.3 % (42.0-52.0); LYMPH # 1.2 10*3/uL (1.3-4.4); LYMPH % 20.4 % (27.0-41.0); MEAN CELL VOLUME 95.9 fl (80.0-94.0); MEAN CORPUSCULAR HGB CONC 32.3 g/dl (33.0-37.0); MEAN PLATELET VOLUME 10.5 fl (9.6-12.3); MONO # 0.6 10*3/uL (0.1-1.0); MONO % 10.6 % (3.0-9.0); NEUT # 3.8 10*3/uL (2.3-7.9); NEUT % 65.7 % (47.0-73.0); PLATELET COUNT AUTOMATED 158 10*3/uL (130-400); WHITE BLOOD COUNT 5.8 10*3/uL (4.8-10.8)
[2020-12-14 06:48] LABS: CHLORIDE 109 mmol/L (98-107); CREATININE 0.99 mg/dL (0.70-1.30); POTASSIUM 3.6 mmol/L (3.5-5.1); SODIUM 142 mmol/L (136-145)
[2020-12-14 06:49] LABS: BUN 26 mg/dl (7-24)
[2020-12-14 08:05] VITALS: BP 130/70
[2020-12-14 12:58] LABS: VITAMIN D, 25-HYDROXY 37.8 ng/mL (30-100)
== END 2020-12-14 12:40 | DRG 640 ==
LOC: ED 08:43 → EDHOLD 10:56
PROVIDERS: Counselor Professional; Emergency Medicine; Internal Medicine; ADMIT Student in an Organized Health Care Education/Training Program; ATTEND Student in an Organized Health Care Education/Training Program
DX: E86.0 Dehydration (principal); N17.0 Acute kidney failure with tubular necrosis; G93.41 Metabolic encephalopathy; F23 Brief psychotic disorder; E87.2 Acidosis; R31.9 Hematuria, unspecified; R82.71 Bacteriuria; G20 Parkinson's disease; F02.80 Dementia in other diseases classified elsewhere, unspecified severity, without behavioral disturbance, psychotic disturbance, mood disturbance, and anxiety; D53.9 Nutritional anemia, unspecified; I10 Essential (primary) hypertension; K21.9 Gastro-esophageal reflux disease without esophagitis; Z90.49 Acquired absence of other specified parts of digestive tract; Z79.899 Other long term (current) drug therapy

== ENCOUNTER 2020-12-14 11:59 | Inpatient (IN) | payer MEDICARE ==
[2020-12-14 12:37] VITALS: BP 99/60
[2020-12-14 14:00] VITALS: BP 99/60
[2020-12-14 20:00] VITALS: BP 100/58
[2020-12-15 06:51] LABS: THYROID STIM HORMONE (HS) 2.36 uIU/ml (0.358-4.75)
[2020-12-15 07:43] VITALS: BP 117/64
[2020-12-15 08:28] LABS: VITAMIN D, 25-HYDROXY 42.4 ng/mL (30-100)
[2020-12-15 14:33] VITALS: BP 112/62
[2020-12-15 20:00] VITALS: BP 112/68
[2020-12-16 07:54] VITALS: BP 135/69
[2020-12-16 20:00] VITALS: BP 128/66
[2020-12-17 07:31] VITALS: BP 144/81
[2020-12-17 20:00] VITALS: BP 148/82
[2020-12-18 07:18] VITALS: BP 112/64
[2020-12-18 17:21] VITALS: BP 82/64
[2020-12-19 08:00] VITALS: BP 101/62
[2020-12-19 13:40] LABS: ALBUMIN 3.2 gm/dl (3.1-4.5); CREATININE 1.53 mg/dL (0.70-1.30); POTASSIUM 4.2 mmol/L (3.5-5.1); TOTAL PROTEIN 7.5 gm/dL (6.4-8.2)
[2020-12-19 20:00] VITALS: BP 95/53
[2020-12-20 08:00] VITALS: BP 160/62
[2020-12-20 20:00] VITALS: BP 97/64
[2020-12-21 07:38] VITALS: BP 140/62
[2020-12-21 07:53] LABS: BUN 42 mg/dl (7-24); CHLORIDE 111 mmol/L (98-107); CREATININE 1.31 mg/dL (0.70-1.30); SODIUM 141 mmol/L (136-145)
[2020-12-21] MEDS ORDERED: ROZEREM8 MG PO (10:21)
[2020-12-21] MEDS ORDERED: MEMANTINE HCL10 MG PO (10:21)
[2020-12-21] MEDS ORDERED: RIVASTIGMINE1 EAC2 T (10:21)
[2020-12-21] MEDS ORDERED: MIRTAZAPINE45 MG PO (10:21)
[2020-12-21] MEDS ORDERED: HOMEMED PO (10:21)
== END 2020-12-21 13:00 | DRG 883 ==
LOC: 3N 11:59
PROVIDERS: Nurse Practitioner Women's Health; Student in an Organized Health Care Education/Training Program; ADMIT Psychiatry & Neurology Psychiatry; ATTEND Psychiatry & Neurology Psychiatry
DX: F63.81 Intermittent explosive disorder (principal); N17.0 Acute kidney failure with tubular necrosis; G93.41 Metabolic encephalopathy; N39.0 Urinary tract infection, site not specified; F23 Brief psychotic disorder; G20 Parkinson's disease; F02.80 Dementia in other diseases classified elsewhere, unspecified severity, without behavioral disturbance, psychotic disturbance, mood disturbance, and anxiety; C61 Malignant neoplasm of prostate; Z20.822 Contact with and (suspected) exposure to COVID-19; I10 Essential (primary) hypertension; K21.9 Gastro-esophageal reflux disease without esophagitis; D50.9 Iron deficiency anemia, unspecified; D53.9 Nutritional anemia, unspecified; R31.9 Hematuria, unspecified; R73.9 Hyperglycemia, unspecified; Z90.49 Acquired absence of other specified parts of digestive tract

== ENCOUNTER 2020-12-24 23:34 | Emergency (ER) | payer MEDICARE ==
[~2020-12-24] VITALS: Ht 175.2 cm; Wt 77.1 kg
[~2020-12-24 23:34] MED LIST changes: +HOMEMED PO; +ROZEREM8 MG PO
[2020-12-25 00:20] LABS: BASO % 0.4 % (0.0-1.0); EOS # 0.1 10*3/uL (0.0-0.4); EOS % 1.3 % (1.0-4.0); LYMPH # 1.2 10*3/uL (1.3-4.4); LYMPH % 25.6 % (27.0-41.0); MEAN CELL VOLUME 96.1 fl (80.0-94.0); MEAN CORPUSCULAR HGB 30.9 pg (27.0-31.0); MEAN CORPUSCULAR HGB CONC 32.2 g/dl (33.0-37.0); MEAN PLATELET VOLUME 10.5 fl (9.6-12.3); MONO # 0.4 10*3/uL (0.1-1.0); MONO % 7.6 % (3.0-9.0); NEUT # 3.1 10*3/uL (2.3-7.9); NEUT % 64.7 % (47.0-73.0); PLATELET COUNT AUTOMATED 141 10*3/uL (130-400); RED BLOOD COUNT 3.33 10*6/uL (4.50-5.90); RED CELL DISTRI WIDTH 14.1 % (0-14.5); WHITE BLOOD COUNT 4.8 10*3/uL (4.8-10.8)
[2020-12-25 00:36] LABS: ALBUMIN 2.9 gm/dl (3.1-4.5); ALKALINE PHOSPHATASE 62 U/L (45-117); BUN 25 mg/dl (7-24); CHLORIDE 110 mmol/L (98-107); CREATININE 1.08 mg/dL (0.70-1.30); POTASSIUM 3.9 mmol/L (3.5-5.1); SGOT/AST 20 IU/L (3-35); SGPT/ALT 9 U/L (12-78); SODIUM 142 mmol/L (136-145); TOTAL PROTEIN 6.4 gm/dL (6.4-8.2)
[2020-12-25 00:37] LABS: ACETAMINOPHEN (TYLENOL) < 5.0 ug/ml (10-30); ETHYL ALCOHOL < 3.0 mg/dl (<3)
[2020-12-25 01:16] LABS: BILIRUBIN Negative (Negative); BLOOD Trace-Lysed (Negative); CLARITY Cloudy (Clear); COLOR Yellow (Yellow); GLUCOSE Negative (Negative); KETONE Trace (Negative); LEUKO ESTERASE 3+ (Negative); NITRITE Negative (Negative); PH 5.5 (4.5-8.0); UROBILINOGEN 0.2 E.U./dl (0.0-1.0)
[2020-12-25 01:20] LABS: URINE AMPHETAMINES < 1000 (1000ng/ml); URINE BARBITURATES < 200 (200ng/ml); URINE BENZODIAZEPINES < 200 (200ng/ml); URINE CANNABINOIDS (THC) < 50 (50ng/ml); URINE COCAINE < 300 (300ng/ml); URINE METHADONE < 300 (300ng/ml); URINE OPIATES < 300 (300ng/ml)
[2020-12-25 01:22] LABS: BACTERIA 2+; URINE PHENCYCLIDINE < 25 (25ng/ml); WBC TNTC wbc/hpf (0-5)
[2020-12-25] MEDS ORDERED: MACROBID100 M1 PO (05:35)
== END 2020-12-25 05:38 ==
LOC: ED 23:34
PROVIDERS: Emergency Medicine
DX: N39.0 Urinary tract infection, site not specified (principal); G20 Parkinson's disease; F03.90 Unspecified dementia, unspecified severity, without behavioral disturbance, psychotic disturbance, mood disturbance, and anxiety; K21.9 Gastro-esophageal reflux disease without esophagitis; I10 Essential (primary) hypertension; Z79.899 Other long term (current) drug therapy; Z90.49 Acquired absence of other specified parts of digestive tract; Z98.890 Other specified postprocedural states

== ENCOUNTER 2021-01-05 05:35 | Inpatient (IN) | payer MEDICARE ==
[~2021-01-05] VITALS: Ht 177.8 cm; Wt 78.0 kg
[~2021-01-05 05:35] MED LIST changes: +MACROBID100 M1 PO
[2021-01-05 05:39] VITALS: BP 164/92
[2021-01-05 06:05] LABS: BASO % 0.3 % (0.0-1.0); EOS # 0.1 10*3/uL (0.0-0.4); HEMATOCRIT 34.8 % (42.0-52.0); LYMPH % 25.1 % (27.0-41.0); MEAN CELL VOLUME 97.5 fl (80.0-94.0); MEAN CORPUSCULAR HGB 31.1 pg (27.0-31.0); MEAN CORPUSCULAR HGB CONC 31.9 g/dl (33.0-37.0); MEAN PLATELET VOLUME 9.8 fl (9.6-12.3); MONO # 0.4 10*3/uL (0.1-1.0); MONO % 9.1 % (3.0-9.0); NEUT # 2.5 10*3/uL (2.3-7.9); NEUT % 62.2 % (47.0-73.0); PLATELET COUNT AUTOMATED 140 10*3/uL (130-400); RED BLOOD COUNT 3.57 10*6/uL (4.50-5.90); RED CELL DISTRI WIDTH 14.7 % (0-14.5); WHITE BLOOD COUNT 3.9 10*3/uL (4.8-10.8)
[2021-01-05 06:23] LABS: ALBUMIN 3.1 gm/dl (3.1-4.5); ALKALINE PHOSPHATASE 74 U/L (45-117); BUN 19 mg/dl (7-24); CHLORIDE 109 mmol/L (98-107); CREATININE 1.22 mg/dL (0.70-1.30); POTASSIUM 3.8 mmol/L (3.5-5.1); SGOT/AST 19 IU/L (3-35); SGPT/ALT 10 U/L (12-78); SODIUM 143 mmol/L (136-145); TOTAL PROTEIN 6.9 gm/dL (6.4-8.2)
[2021-01-05 06:24] LABS: ACETAMINOPHEN (TYLENOL) < 5.0 ug/ml (10-30); ETHYL ALCOHOL < 3.0 mg/dl (<3)
[2021-01-05 10:04] LABS: BILIRUBIN Negative (Negative); BLOOD Negative (Negative); CLARITY Clear (Clear); COLOR Yellow (Yellow); GLUCOSE Negative (Negative); KETONE Negative (Negative); LEUKO ESTERASE 2+ (Negative); NITRITE Negative (Negative); PH 6.5 (4.5-8.0); UROBILINOGEN 0.2 E.U./dl (0.0-1.0)
[2021-01-05 10:12] LABS: URINE AMPHETAMINES < 1000 (1000ng/ml); URINE BARBITURATES < 200 (200ng/ml); URINE BENZODIAZEPINES < 200 (200ng/ml); URINE CANNABINOIDS (THC) < 50 (50ng/ml); URINE COCAINE < 300 (300ng/ml); URINE METHADONE < 300 (300ng/ml); URINE OPIATES < 300 (300ng/ml)
[2021-01-05 10:17] LABS: URINE PHENCYCLIDINE < 25 (25ng/ml)
[2021-01-05 10:20] LABS: WBC 21-30 wbc/hpf (0-5)
[2021-01-05 12:00] VITALS: BP 132/79
[2021-01-05] MEDS ORDERED: AMIODARONE HCL400 MG PO (14:51)
[2021-01-05] MEDS ORDERED: TRAZODONE50 MG PO (14:54)
[2021-01-05] MEDS ORDERED: SEROQUEL25 MG PO (14:59)
[2021-01-05] MEDS ORDERED: MIDODRINE HCL5 M1 PO (15:06)
[2021-01-05] MEDS ORDERED: COREG3.125 MG PO (15:10)
[2021-01-05 17:19] VITALS: BP 163/86
[2021-01-06 07:47] VITALS: BP 126/66
[2021-01-06 07:59] LABS: VITAMIN D, 25-HYDROXY 45.9 ng/mL (30-100)
[2021-01-10 07:30] VITALS: BP 146/75
[2021-01-10 20:00] VITALS: BP 135/69
[2021-01-11 08:00] VITALS: BP 106/68
[2021-01-11 20:00] VITALS: BP 133/84
[2021-01-12 06:44] LABS: BASO % 0.3 % (0.0-1.0); EOS # 0.1 10*3/uL (0.0-0.4); EOS % 1.2 % (1.0-4.0); HEMATOCRIT 36.4 % (42.0-52.0); LYMPH # 1.2 10*3/uL (1.3-4.4); MEAN CELL VOLUME 97.6 fl (80.0-94.0); MEAN CORPUSCULAR HGB 31.4 pg (27.0-31.0); MEAN CORPUSCULAR HGB CONC 32.1 g/dl (33.0-37.0); MEAN PLATELET VOLUME 10.1 fl (9.6-12.3); MONO # 0.6 10*3/uL (0.1-1.0); MONO % 7.7 % (3.0-9.0); NEUT # 5.8 10*3/uL (2.3-7.9); NEUT % 75.4 % (47.0-73.0); PLATELET COUNT AUTOMATED 174 10*3/uL (130-400); RED BLOOD COUNT 3.73 10*6/uL (4.50-5.90); RED CELL DISTRI WIDTH 14.8 % (0-14.5); WHITE BLOOD COUNT 7.7 10*3/uL (4.8-10.8)
[2021-01-12 07:02] LABS: ALBUMIN 2.9 gm/dl (3.1-4.5); ALKALINE PHOSPHATASE 75 U/L (45-117); BUN 28 mg/dl (7-24); CHLORIDE 110 mmol/L (98-107); CREATININE 1.17 mg/dL (0.70-1.30); POTASSIUM 3.7 mmol/L (3.5-5.1); SGOT/AST 18 IU/L (3-35); SGPT/ALT 17 U/L (12-78); SODIUM 144 mmol/L (136-145)
[2021-01-12 07:42] VITALS: BP 107/53
[2021-01-12] MEDS ORDERED: RIVASTIGMINE1 EAC2 T (09:35)
[2021-01-12] MEDS ORDERED: ROZEREM8 MG PO (09:35)
[2021-01-12] MEDS ORDERED: MIRTAZAPINE45 MG PO (09:35)
[2021-01-12] MEDS ORDERED: VITAMIN D3125 MC1 PO (09:35)
[2021-01-12] MEDS ORDERED: MEMANTINE HCL10 MG PO (09:35)
[2021-01-12] MEDS ORDERED: HOMEMED PO (09:35)
[2021-01-12] MEDS ORDERED: B121000 MCG/1 IM (09:35)
[2021-01-12 20:00] VITALS: BP 169/95
[2021-01-13 08:03] VITALS: BP 146/77
== END 2021-01-13 14:40 | DRG 57 ==
LOC: ED 05:35 → 3N 10:55 → EDHOLD 10:55 → 3N 11:51
PROVIDERS: Counselor Professional; Internal Medicine; ADMIT Psychiatry & Neurology Psychiatry; ATTEND Psychiatry & Neurology Psychiatry
DX: G20 Parkinson's disease (principal); F02.81 Dementia in other diseases classified elsewhere, unspecified severity, with behavioral disturbance; F63.81 Intermittent explosive disorder; N18.30 Chronic kidney disease, stage 3 unspecified; N39.0 Urinary tract infection, site not specified; Z20.822 Contact with and (suspected) exposure to COVID-19; I12.9 Hypertensive chronic kidney disease with stage 1 through stage 4 chronic kidney disease, or unspecified chronic kidney disease; K21.9 Gastro-esophageal reflux disease without esophagitis; D53.9 Nutritional anemia, unspecified; Z90.49 Acquired absence of other specified parts of digestive tract; G30.9 Alzheimer's disease, unspecified

== ENCOUNTER 2022-05-03 15:57 | Inpatient (IN) | payer OTHER ==
[~2022-05-03] VITALS: Ht 172.7 cm; Wt 84.4 kg
[~2022-05-03 15:57] MED LIST changes: +AMIODARONE HCL400 MG PO; +MIDODRINE HCL5 M1 PO; +TRAZODONE50 MG PO
[2022-05-03 16:05] VITALS: BP 205/116
[2022-05-03 17:00] VITALS: BP 153/99
[2022-05-03 17:05] LABS: BASO % 0.4 % (0.0-1.0); EOS # 0.1 10*3/uL (0.0-0.4); EOS % 1.5 % (1.0-4.0); LYMPH # 1.1 10*3/uL (1.3-4.4); LYMPH % 20.3 % (27.0-41.0); MEAN CELL VOLUME 99.3 fl (80.0-94.0); MEAN CORPUSCULAR HGB 32.5 pg (27.0-31.0); MEAN CORPUSCULAR HGB CONC 32.8 g/dl (33.0-37.0); MEAN PLATELET VOLUME 9.9 fl (9.6-12.3); MONO # 0.4 10*3/uL (0.1-1.0); MONO % 7.6 % (3.0-9.0); NEUT # 3.8 10*3/uL (2.3-7.9); NEUT % 69.8 % (47.0-73.0); PLATELET COUNT AUTOMATED 194 10*3/uL (130-400); RED BLOOD COUNT 4.03 10*6/uL (4.50-5.90); RED CELL DISTRI WIDTH 12.9 % (0-14.5); WHITE BLOOD COUNT 5.4 10*3/uL (4.8-10.8)
[2022-05-03] MEDS ORDERED: ACETAMINOPHEN325 M2 PO (17:06)
[2022-05-03 17:16] LABS: ACT PARTIAL THROMBO TIME 26.2 SECONDS (20.0-32.1)
[2022-05-03 17:25] LABS: ALKALINE PHOSPHATASE 66 U/L (46-116); BUN 15 mg/dl (9-23); CHLORIDE 104 mmol/L (98-107); LIPASE 49 U/L (12-53); POTASSIUM 4.3 mmol/L (3.4-5.1); SGPT/ALT 10 U/L (10-49); TOTAL PROTEIN 6.9 gm/dL (6.0-8.0)
[2022-05-03 17:30] VITALS: BP 145/96
[2022-05-03 19:51] LABS: BILIRUBIN Negative (Negative); BLOOD 3+ (Negative); CLARITY Clear (Clear); COLOR Yellow (Yellow); GLUCOSE Negative (Negative); KETONE Negative (Negative); LEUKO ESTERASE 2+ (Negative); NITRITE Negative (Negative); SPECIFIC GRAVITY 1.015 (1.001-1.030)
[2022-05-03 20:00] VITALS: BP 178/100
[2022-05-03 20:19] LABS: RBC 21-30 rbc/hpf (0-2); WBC 16-20 wbc/hpf (0-5)
[2022-05-03 20:20] LABS: BACTERIA 1+
[2022-05-03 22:30] VITALS: BP 135/88
[2022-05-03] MEDS ORDERED: Sinemet Cr 25-11 TAB PO (22:45)
[2022-05-03] MEDS ORDERED: B121000 MCG/1 IM (22:47)
[2022-05-03] MEDS ORDERED: MELATONIN3 MG PO (22:47)
[2022-05-03] MEDS ORDERED: NEUPRO1 EAC5 T (22:51)
[2022-05-03] MEDS ORDERED: MIRTAZAPINE30 M2 PO (22:51)
[2022-05-03] MEDS ORDERED: EXELON1 EAC2 T (22:52)
[2022-05-03] MEDS ORDERED: RYTARY ER 61.21 EACH PO (22:53)
[2022-05-04 05:19] LABS: ALKALINE PHOSPHATASE 68 U/L (46-116); BUN 14 mg/dl (9-23); CHLORIDE 105 mmol/L (98-107); CHOLESTEROL 186 mg/dL (<200); LDL CHOLESTEROL 114 mg/dL (9-159); SGPT/ALT 12 U/L (10-49); TOTAL PROTEIN 6.6 gm/dL (6.0-8.0); TRIGLYCERIDES 134 mg/dl (<150)
[2022-05-04 06:38] LABS: BASO % 0.1 % (0.0-1.0); EOS % 0.5 % (1.0-4.0); HEMATOCRIT 39.4 % (42.0-52.0); LYMPH # 1.1 10*3/uL (1.3-4.4); LYMPH % 14.3 % (27.0-41.0); MEAN CELL VOLUME 99.2 fl (80.0-94.0); MEAN CORPUSCULAR HGB CONC 32.2 g/dl (33.0-37.0); MEAN PLATELET VOLUME 10.6 fl (9.6-12.3); MONO # 0.6 10*3/uL (0.1-1.0); MONO % 7.7 % (3.0-9.0); NEUT # 5.7 10*3/uL (2.3-7.9); PLATELET COUNT AUTOMATED 194 10*3/uL (130-400); RED BLOOD COUNT 3.97 10*6/uL (4.50-5.90); RED CELL DISTRI WIDTH 12.9 % (0-14.5); WHITE BLOOD COUNT 7.4 10*3/uL (4.8-10.8)
[2022-05-04 08:00] VITALS: BP 148/84
[2022-05-04 08:12] LABS: VITAMIN D, 25-HYDROXY 71.4 ng/mL (30-100)
[2022-05-04 12:00] VITALS: BP 144/87
[2022-05-04 16:00] VITALS: BP 151/93
[2022-05-04 20:00] VITALS: BP 118/74
[2022-05-05] VITALS: BP 123/83
[2022-05-05 08:00] VITALS: BP 125/71
[2022-05-05 12:00] VITALS: BP 130/77
[2022-05-05 16:00] VITALS: BP 124/77; BP 125/81
[2022-05-05 20:00] VITALS: BP 140/83
[2022-05-06] VITALS: BP 146/86
[2022-05-06 06:42] LABS: BASO % 0.2 % (0.0-1.0); EOS # 0.1 10*3/uL (0.0-0.4); EOS % 1.8 % (1.0-4.0); HEMATOCRIT 41.7 % (42.0-52.0); LYMPH # 1.2 10*3/uL (1.3-4.4); LYMPH % 17.6 % (27.0-41.0); MEAN CORPUSCULAR HGB 32.4 pg (27.0-31.0); MEAN CORPUSCULAR HGB CONC 32.4 g/dl (33.0-37.0); MEAN PLATELET VOLUME 10.3 fl (9.6-12.3); MONO # 0.5 10*3/uL (0.1-1.0); MONO % 7.5 % (3.0-9.0); NEUT # 4.9 10*3/uL (2.3-7.9); NEUT % 72.7 % (47.0-73.0); PLATELET COUNT AUTOMATED 191 10*3/uL (130-400); RED BLOOD COUNT 4.17 10*6/uL (4.50-5.90); RED CELL DISTRI WIDTH 13.2 % (0-14.5); WHITE BLOOD COUNT 6.7 10*3/uL (4.8-10.8)
[2022-05-06 07:04] LABS: BUN 20 mg/dl (9-23); CHLORIDE 108 mmol/L (98-107); POTASSIUM 3.7 mmol/L (3.4-5.1)
[2022-05-06 08:00] VITALS: BP 179/98
[2022-05-06 12:00] VITALS: BP 150/84
[2022-05-06 16:00] VITALS: BP 153/76
[2022-05-06 20:00] VITALS: BP 160/90
[2022-05-07] VITALS: BP 138/84
[2022-05-07 06:54] LABS: BASO % 0.2 % (0.0-1.0); EOS # 0.1 10*3/uL (0.0-0.4); EOS % 2.3 % (1.0-4.0); HEMATOCRIT 41.6 % (42.0-52.0); LYMPH # 1.3 10*3/uL (1.3-4.4); LYMPH % 21.4 % (27.0-41.0); MEAN CELL VOLUME 100.5 fl (80.0-94.0); MEAN CORPUSCULAR HGB 32.4 pg (27.0-31.0); MEAN CORPUSCULAR HGB CONC 32.2 g/dl (33.0-37.0); MEAN PLATELET VOLUME 10.3 fl (9.6-12.3); MONO # 0.5 10*3/uL (0.1-1.0); NEUT % 66.9 % (47.0-73.0); PLATELET COUNT AUTOMATED 200 10*3/uL (130-400); RED BLOOD COUNT 4.14 10*6/uL (4.50-5.90); RED CELL DISTRI WIDTH 13.1 % (0-14.5)
[2022-05-07 07:07] LABS: BUN 15 mg/dl (9-23); CHLORIDE 106 mmol/L (98-107); POTASSIUM 3.5 mmol/L (3.4-5.1)
[2022-05-07 08:00] VITALS: BP 157/90
[2022-05-07 12:00] VITALS: BP 124/77
[2022-05-07 15:55] VITALS: BP 129/81
[2022-05-07 20:00] VITALS: BP 108/64
[2022-05-08] VITALS: BP 101/72
[2022-05-08 04:22] LABS: BASO % 0.3 % (0.0-1.0); EOS # 0.2 10*3/uL (0.0-0.4); EOS % 2.5 % (1.0-4.0); HEMATOCRIT 40.5 % (42.0-52.0); LYMPH # 1.2 10*3/uL (1.3-4.4); LYMPH % 17.7 % (27.0-41.0); MEAN CELL VOLUME 101.5 fl (80.0-94.0); MEAN CORPUSCULAR HGB 31.8 pg (27.0-31.0); MEAN CORPUSCULAR HGB CONC 31.4 g/dl (33.0-37.0); MEAN PLATELET VOLUME 10.1 fl (9.6-12.3); MONO # 0.6 10*3/uL (0.1-1.0); MONO % 8.9 % (3.0-9.0); NEUT # 4.8 10*3/uL (2.3-7.9); NEUT % 70.3 % (47.0-73.0); PLATELET COUNT AUTOMATED 187 10*3/uL (130-400); RED BLOOD COUNT 3.99 10*6/uL (4.50-5.90); RED CELL DISTRI WIDTH 13.2 % (0-14.5); WHITE BLOOD COUNT 6.9 10*3/uL (4.8-10.8)
[2022-05-08 04:38] LABS: BUN 20 mg/dl (9-23); CHLORIDE 109 mmol/L (98-107); POTASSIUM 3.6 mmol/L (3.4-5.1)
[2022-05-08 08:00] VITALS: BP 159/90
[2022-05-08] MEDS ORDERED: AMOXICILLIN875 MG PO (12:25)
[2022-05-08] MEDS ORDERED: CARBIDOPA-LEVO1 EAC6 PO (19:26)
[2022-05-08] MEDS ORDERED: SINEMET 25-1001 EACH PO (19:29)
[2022-05-08] MEDS ORDERED: RYTARY ER 61.21 EACH PO (19:30)
[2022-05-08] MEDS ORDERED: EXELON1 EAC2 T (19:31)
[2022-05-08] MEDS ORDERED: NEUPRO1 EAC5 TD (19:32)
== END 2022-05-08 14:52 | DRG 689 ==
LOC: ED 15:57 → EDHOLD 18:42 → 5E 18:42
PROVIDERS: Emergency Medicine; Internal Medicine; Student in an Organized Health Care Education/Training Program; ADMIT Student in an Organized Health Care Education/Training Program; ATTEND Student in an Organized Health Care Education/Training Program
DX: N30.01 Acute cystitis with hematuria (principal); G93.41 Metabolic encephalopathy; I16.1 Hypertensive emergency; K21.9 Gastro-esophageal reflux disease without esophagitis; F63.81 Intermittent explosive disorder; Z90.49 Acquired absence of other specified parts of digestive tract; E86.0 Dehydration; D53.9 Nutritional anemia, unspecified; G20 Parkinson's disease; F02.80 Dementia in other diseases classified elsewhere, unspecified severity, without behavioral disturbance, psychotic disturbance, mood disturbance, and anxiety; N18.30 Chronic kidney disease, stage 3 unspecified; I12.9 Hypertensive chronic kidney disease with stage 1 through stage 4 chronic kidney disease, or unspecified chronic kidney disease; S81.012A Laceration without foreign body, left knee, initial encounter; X58.XXXA Exposure to other specified factors, initial encounter; Y93.89 Activity, other specified; Y92.89 Other specified places as the place of occurrence of the external cause; Y99.8 Other external cause status; Z85.46 Personal history of malignant neoplasm of prostate; Z68.29 Body mass index [BMI] 29.0-29.9, adult

== ENCOUNTER 2023-02-16 22:22 | Emergency (ER) | payer OTHER ==
[~2023-02-16] VITALS: Wt 83.9 kg
[~2023-02-16 22:22] MED LIST changes: +ACETAMINOPHEN325 M2 PO; +AMOX-CLAV 875-1 EACH PO; +AMOXICILLIN875 MG PO; +AUVELITY ER 451 EACH PO; +CARBIDOPA-LEVO1 EAC6 PO; +CRANBERRY450 M2 PO; +EXELON1 EAC2 T; +MELATONIN3 MG PO; +MIRTAZAPINE30 M2 PO; +NEUPRO1 EAC5 T; +NEUPRO1 EAC5 TD; +Sinemet Cr 25-11 TAB PO
[2023-02-16] MEDS ORDERED: RYTARY ER 61.21 EACH PO (22:42)
[2023-02-16] MEDS ORDERED: VITAMIN D250 MC1 PO (22:43)
[2023-02-16 23:17] LABS: BASO % 0.2 % (0.0-1.0); EOS # 0.1 10*3/uL (0.0-0.4); EOS % 1.9 % (1.0-4.0); HEMATOCRIT 34.7 % (42.0-52.0); LYMPH # 1.3 10*3/uL (1.3-4.4); LYMPH % 28.2 % (27.0-41.0); MEAN CELL VOLUME 100.6 fl (80.0-94.0); MEAN CORPUSCULAR HGB 32.8 pg (27.0-31.0); MEAN CORPUSCULAR HGB CONC 32.6 g/dl (33.0-37.0); MONO # 0.5 10*3/uL (0.1-1.0); MONO % 11.3 % (3.0-9.0); NEUT # 2.7 10*3/uL (2.3-7.9); NEUT % 58.2 % (47.0-73.0); PLATELET COUNT AUTOMATED 163 10*3/uL (130-400); RED BLOOD COUNT 3.45 10*6/uL (4.50-5.90); RED CELL DISTRI WIDTH 12.5 % (0-14.5); WHITE BLOOD COUNT 4.7 10*3/uL (4.8-10.8)
[2023-02-16 23:29] LABS: BILIRUBIN Negative (Negative); BLOOD 2+ (Negative); CLARITY Turbid (Clear); COLOR Yellow (Yellow); GLUCOSE Negative (Negative); KETONE Negative (Negative); LEUKO ESTERASE 3+ (Negative); NITRITE Positive (Negative); PH 5.5 (4.5-8.0); SPECIFIC GRAVITY 1.015 (1.001-1.030); UROBILINOGEN 0.2 E.U./dl (0.0-1.0)
[2023-02-16 23:33] LABS: ACT PARTIAL THROMBO TIME 27.3 SECONDS (20.0-32.1)
[2023-02-16 23:43] LABS: RBC 16-20 rbc/hpf (0-2); WBC TNTC wbc/hpf (0-5)
[2023-02-16 23:44] LABS: BACTERIA 3+
[2023-02-16 23:53] LABS: ALKALINE PHOSPHATASE 84 U/L (46-116); BUN 13 mg/dl (9-23); CHLORIDE 110 mmol/L (98-107); LIPASE 44 U/L (12-53); POTASSIUM 3.7 mmol/L (3.4-5.1); TOTAL PROTEIN 6.3 gm/dL (6.0-8.0)
[2023-02-16 23:54] LABS: SGPT/ALT < 7 U/L (5-49)
== END 2023-02-17 07:39 | disposition short-term general hospital (02) ==
LOC: ED 22:22
PROVIDERS: Internal Medicine
DX: N20.0 Calculus of kidney (principal); N39.0 Urinary tract infection, site not specified; R11.2 Nausea with vomiting, unspecified; I10 Essential (primary) hypertension; F32.A Depression, unspecified; D64.9 Anemia, unspecified; K21.9 Gastro-esophageal reflux disease without esophagitis; E78.00 Pure hypercholesterolemia, unspecified; M79.7 Fibromyalgia; R73.9 Hyperglycemia, unspecified; F41.9 Anxiety disorder, unspecified; E87.6 Hypokalemia; Z90.49 Acquired absence of other specified parts of digestive tract; Z98.890 Other specified postprocedural states

== ENCOUNTER 2023-02-27 21:28 | Emergency (ER) | payer OTHER ==
[~2023-02-27] VITALS: Ht 172.7 cm; Wt 70.3 kg
[~2023-02-27 21:28] MED LIST changes: +VITAMIN D250 MC1 PO
[2023-02-27 21:43] LABS: BASO % 0.3 % (0.0-1.0); EOS # 0.3 10*3/uL (0.0-0.4); EOS % 4.2 % (1.0-4.0); HEMATOCRIT 33.7 % (42.0-52.0); LYMPH # 0.6 10*3/uL (1.3-4.4); LYMPH % 8.3 % (27.0-41.0); MEAN CELL VOLUME 103.1 fl (80.0-94.0); MEAN CORPUSCULAR HGB 32.4 pg (27.0-31.0); MEAN CORPUSCULAR HGB CONC 31.5 g/dl (33.0-37.0); MEAN PLATELET VOLUME 10.1 fl (9.6-12.3); MONO # 0.7 10*3/uL (0.1-1.0); MONO % 9.8 % (3.0-9.0); NEUT # 5.8 10*3/uL (2.3-7.9); PLATELET COUNT AUTOMATED 224 10*3/uL (130-400); RED BLOOD COUNT 3.27 10*6/uL (4.50-5.90); RED CELL DISTRI WIDTH 12.8 % (0-14.5); WHITE BLOOD COUNT 7.5 10*3/uL (4.8-10.8)
[2023-02-27 22:03] LABS: ALKALINE PHOSPHATASE 88 U/L (46-116); BUN 27 mg/dl (9-23); CHLORIDE 106 mmol/L (98-107); POTASSIUM 3.6 mmol/L (3.4-5.1); TOTAL PROTEIN 6.5 gm/dL (6.0-8.0)
[2023-02-27 22:08] LABS: SGPT/ALT < 7 U/L (5-49)
[2023-02-28 01:49] LABS: BILIRUBIN Negative (Negative); BLOOD 3+ (Negative); CLARITY Cloudy (Clear); COLOR Yellow (Yellow); GLUCOSE Negative (Negative); KETONE Trace (Negative); LEUKO ESTERASE 2+ (Negative); NITRITE Negative (Negative); PH 5.5 (4.5-8.0)
[2023-02-28 02:16] LABS: RBC TNTC rbc/hpf (0-2)
[2023-02-28 02:17] LABS: BACTERIA 1+
[2023-02-28] MEDS ORDERED: CIPRO500 MG PO ×2 (02:52→12:44)
[2023-02-28] MEDS ORDERED: AUVELITY ER 451 EACH PO (12:43)
[2023-02-28] MEDS ORDERED: CARBIDOPA-LEVO1 EAC6 PO (12:44)
[2023-02-28] MEDS ORDERED: CRANBERRY450 M2 PO (12:44)
[2023-02-28] MEDS ORDERED: FINASTERIDE5 M1 PO (12:45)
[2023-02-28] MEDS ORDERED: EXELON1 EAC2 TD (12:46)
[2023-02-28] MEDS ORDERED: NEUPRO1 EAC5 TD (12:46)
[2023-02-28] MEDS ORDERED: RYTARY ER 61.21 EACH PO (12:46)
[2023-02-28] MEDS ORDERED: FLOMAX0.4 MG PO (12:47)
[2023-02-28] MEDS ORDERED: VITAMIN D250 MC1 PO (12:47)
== END 2023-02-28 05:59 ==
LOC: ED 21:28
PROVIDERS: Internal Medicine
DX: N39.0 Urinary tract infection, site not specified (principal); I10 Essential (primary) hypertension; F32.A Depression, unspecified; D64.9 Anemia, unspecified; F03.90 Unspecified dementia, unspecified severity, without behavioral disturbance, psychotic disturbance, mood disturbance, and anxiety; K21.9 Gastro-esophageal reflux disease without esophagitis; E78.00 Pure hypercholesterolemia, unspecified; I48.91 Unspecified atrial fibrillation; E87.8 Other disorders of electrolyte and fluid balance, not elsewhere classified; F41.9 Anxiety disorder, unspecified; Z87.442 Personal history of urinary calculi; Z90.49 Acquired absence of other specified parts of digestive tract; Z98.890 Other specified postprocedural states; W19.XXXA Unspecified fall, initial encounter

== ENCOUNTER 2023-02-28 12:31 | Emergency (ER) | payer OTHER ==
[~2023-02-28] VITALS: Ht 180.3 cm; Wt 61.7 kg
[~2023-02-28 12:31] MED LIST changes: +CIPRO500 MG PO
[2023-02-28] MEDS ORDERED: AUVELITY ER 451 EACH PO (12:43)
[2023-02-28] MEDS ORDERED: CIPRO500 MG PO (12:44)
[2023-02-28] MEDS ORDERED: CARBIDOPA-LEVO1 EAC6 PO (12:44)
[2023-02-28] MEDS ORDERED: CRANBERRY450 M2 PO (12:44)
[2023-02-28] MEDS ORDERED: FINASTERIDE5 M1 PO (12:45)
[2023-02-28] MEDS ORDERED: NEUPRO1 EAC5 TD (12:46)
[2023-02-28] MEDS ORDERED: EXELON1 EAC2 TD (12:46)
[2023-02-28] MEDS ORDERED: RYTARY ER 61.21 EACH PO (12:46)
[2023-02-28] MEDS ORDERED: VITAMIN D250 MC1 PO (12:47)
[2023-02-28] MEDS ORDERED: FLOMAX0.4 MG PO (12:47)
[2023-02-28 13:17] LABS: BASO % 0.2 % (0.0-1.0); EOS # 0.2 10*3/uL (0.0-0.4); EOS % 3.5 % (1.0-4.0); HEMATOCRIT 32.6 % (42.0-52.0); LYMPH # 0.6 10*3/uL (1.3-4.4); LYMPH % 12.1 % (27.0-41.0); MEAN CELL VOLUME 102.5 fl (80.0-94.0); MEAN CORPUSCULAR HGB 32.7 pg (27.0-31.0); MEAN CORPUSCULAR HGB CONC 31.9 g/dl (33.0-37.0); MEAN PLATELET VOLUME 10.1 fl (9.6-12.3); MONO # 0.5 10*3/uL (0.1-1.0); MONO % 10.2 % (3.0-9.0); NEUT # 3.8 10*3/uL (2.3-7.9); NEUT % 73.6 % (47.0-73.0); PLATELET COUNT AUTOMATED 205 10*3/uL (130-400); RED BLOOD COUNT 3.18 10*6/uL (4.50-5.90); RED CELL DISTRI WIDTH 12.6 % (0-14.5); WHITE BLOOD COUNT 5.2 10*3/uL (4.8-10.8)
[2023-02-28 13:28] LABS: ACT PARTIAL THROMBO TIME 29.1 SECONDS (20.0-32.1)
[2023-02-28 13:39] LABS: ALKALINE PHOSPHATASE 81 U/L (46-116); BUN 21 mg/dl (9-23); CHLORIDE 108 mmol/L (98-107); LIPASE 52 U/L (12-53); POTASSIUM 3.5 mmol/L (3.4-5.1); TOTAL PROTEIN 6.1 gm/dL (6.0-8.0)
[2023-02-28 13:41] LABS: SGPT/ALT < 7 U/L (5-49)
[2023-02-28 14:04] LABS: BILIRUBIN Negative (Negative); BLOOD 3+ (Negative); CLARITY Turbid (Clear); COLOR Yellow (Yellow); GLUCOSE Negative (Negative); KETONE Negative (Negative); LEUKO ESTERASE 2+ (Negative); NITRITE Negative (Negative); UROBILINOGEN 0.2 E.U./dl (0.0-1.0)
[2023-02-28 14:12] LABS: BACTERIA 1+; CALCIUM OXALATE CRYSTALS 1+; RBC TNTC rbc/hpf (0-2); WBC 16-20 wbc/hpf (0-5)
== END 2023-02-28 17:10 | disposition short-term general hospital (02) ==
LOC: ED 12:31
PROVIDERS: Emergency Medicine
DX: N20.1 Calculus of ureter (principal); R53.83 Other fatigue; I10 Essential (primary) hypertension; F32.A Depression, unspecified; D64.9 Anemia, unspecified; K21.9 Gastro-esophageal reflux disease without esophagitis; E78.00 Pure hypercholesterolemia, unspecified; I48.91 Unspecified atrial fibrillation; R73.9 Hyperglycemia, unspecified; F41.9 Anxiety disorder, unspecified; E87.6 Hypokalemia; Z90.49 Acquired absence of other specified parts of digestive tract; Z98.890 Other specified postprocedural states

== ENCOUNTER → 2023-05-15 | Outpatient (CLI) | payer OTHER ==
[~2023-05-15] MED LIST changes: +EXELON1 EAC2 TD; +FLOMAX0.4 MG PO
[2023-05-15 13:11] LABS: BASO % 0.4 % (0.0-1.0); EOS % 0.9 % (1.0-4.0); HEMATOCRIT 35.7 % (42.0-52.0); LYMPH % 21.5 % (27.0-41.0); MEAN CELL VOLUME 99.2 fl (80.0-94.0); MEAN CORPUSCULAR HGB 32.2 pg (27.0-31.0); MEAN CORPUSCULAR HGB CONC 32.5 g/dl (33.0-37.0); MEAN PLATELET VOLUME 9.4 fl (9.6-12.3); MONO # 0.5 10*3/uL (0.1-1.0); MONO % 9.6 % (3.0-9.0); NEUT # 3.2 10*3/uL (2.3-7.9); NEUT % 67.4 % (47.0-73.0); PLATELET COUNT AUTOMATED 223 10*3/uL (130-400); RED CELL DISTRI WIDTH 13.6 % (0-14.5); WHITE BLOOD COUNT 4.7 10*3/uL (4.8-10.8)
[2023-05-15 13:52] LABS: ALKALINE PHOSPHATASE 76 U/L (46-116); BUN 12 mg/dl (9-23); CHLORIDE 105 mmol/L (98-107); POTASSIUM 3.8 mmol/L (3.4-5.1); THYROXINE (T4) TOTAL 6.2 ug/dl (4.5-10.9); TOTAL PROTEIN 6.6 gm/dL (6.0-8.0)
[2023-05-15 13:58] LABS: SGPT/ALT < 7 U/L (5-49)
== END | disposition home or self-care (01) ==
LOC: LAB 12:40 → US 13:30
PROVIDERS: ATTEND Urology
DX: N20.0 Calculus of kidney (principal); N28.1 Cyst of kidney, acquired; R31.9 Hematuria, unspecified; E83.50 Unspecified disorder of calcium metabolism

== ENCOUNTER → 2023-05-17 | Outpatient (CLI) | payer OTHER ==
[~2023-05-17] MED LIST changes: +TYLENOL325 M2 PO; +VITAMIN D350 MCG PO
[2023-05-17 12:16] LABS: BILIRUBIN Negative (Negative); BLOOD Negative (Negative); CLARITY Clear (Clear); COLOR Yellow (Yellow); GLUCOSE Negative (Negative); KETONE Negative (Negative); LEUKO ESTERASE Negative (Negative); NITRITE Negative (Negative); PH 6.5 (4.5-8.0); SPECIFIC GRAVITY 1.015 (1.001-1.030)
[2023-05-17 13:31] LABS: CALCIUM OXALATE CRYSTALS 2+
== END | disposition home or self-care (01) ==
LOC: LAB 05-16 03:00
PROVIDERS: ATTEND Urology
DX: N20.0 Calculus of kidney (principal); R31.9 Hematuria, unspecified; E83.50 Unspecified disorder of calcium metabolism

== ENCOUNTER 2023-05-25 11:54 | Inpatient (IN) | payer OTHER ==
[~2023-05-25] VITALS: Ht 177.8 cm; Wt 77.2 kg
[~2023-05-25 11:54] MED LIST changes: -TYLENOL325 M2 PO; -VITAMIN D350 MCG PO
[2023-05-25 12:02] VITALS: BP 125/76
[2023-05-25 12:41] LABS: EOS # 0.1 10*3/uL (0.0-0.4); EOS % 1.5 % (1.0-4.0); HEMATOCRIT 36.9 % (42.0-52.0); LYMPH # 0.9 10*3/uL (1.3-4.4); LYMPH % 19.9 % (27.0-41.0); MEAN CELL VOLUME 103.1 fl (80.0-94.0); MEAN CORPUSCULAR HGB 31.8 pg (27.0-31.0); MEAN CORPUSCULAR HGB CONC 30.9 g/dl (33.0-37.0); MEAN PLATELET VOLUME 9.6 fl (9.6-12.3); MONO # 0.4 10*3/uL (0.1-1.0); MONO % 7.6 % (3.0-9.0); NEUT # 3.3 10*3/uL (2.3-7.9); NEUT % 70.8 % (47.0-73.0); PLATELET COUNT AUTOMATED 169 10*3/uL (130-400); RED BLOOD COUNT 3.58 10*6/uL (4.50-5.90); RED CELL DISTRI WIDTH 13.7 % (0-14.5); WHITE BLOOD COUNT 4.6 10*3/uL (4.8-10.8)
[2023-05-25 12:51] LABS: ACT PARTIAL THROMBO TIME 25.9 SECONDS (20.0-32.1)
[2023-05-25 13:10] LABS: ALKALINE PHOSPHATASE 82 U/L (46-116); BUN 19 mg/dl (9-23); CHLORIDE 106 mmol/L (98-107); LIPASE 44 U/L (12-53); POTASSIUM 4.1 mmol/L (3.4-5.1); TOTAL PROTEIN 6.4 gm/dL (6.0-8.0)
[2023-05-25 13:11] LABS: SGPT/ALT < 7 U/L (5-49)
[2023-05-25 14:38] VITALS: BP 143/85
[2023-05-25 15:12] LABS: BILIRUBIN Negative (Negative); BLOOD 1+ (Negative); CLARITY Cloudy (Clear); COLOR Yellow (Yellow); GLUCOSE Negative (Negative); KETONE Negative (Negative); LEUKO ESTERASE 3+ (Negative); NITRITE Negative (Negative); PH 6.5 (4.5-8.0); SPECIFIC GRAVITY 1.015 (1.001-1.030)
[2023-05-25 15:33] LABS: WBC TNTC wbc/hpf (0-5)
[2023-05-25] MEDS ORDERED: Ceftriaxone Sodium 1 GM/10 ML SYR IV ONE (15:50)
[2023-05-25] MEDS ORDERED: REMERON15 M2 PO (16:20)
[2023-05-25] MEDS ORDERED: TYLENOL325 M2 PO (16:21)
[2023-05-25] MEDS ORDERED: ACETAMINOPHEN 325 MG TAB PO PRN (16:30)
[2023-05-25] MEDS ORDERED: Magnesium Hydroxide 30 ML UDC PO PRN (16:30)
[2023-05-25] MEDS ORDERED: BISACODYL 5 MG TAB PO PRN (16:30)
[2023-05-25 19:24] VITALS: BP 100/62
[2023-05-25 20:50] VITALS: BP 119/68
[2023-05-25] MEDS ORDERED: VITAMIN D350 MCG PO (22:53)
[2023-05-26] VITALS: BP 152/91
[2023-05-26 06:06] LABS: ALKALINE PHOSPHATASE 88 U/L (46-116); BUN 20 mg/dl (9-23); CHLORIDE 104 mmol/L (98-107); POTASSIUM 4.4 mmol/L (3.4-5.1); TOTAL PROTEIN 6.6 gm/dL (6.0-8.0)
[2023-05-26 06:09] LABS: BASO % 0.2 % (0.0-1.0); EOS # 0.1 10*3/uL (0.0-0.4); HEMATOCRIT 37.9 % (42.0-52.0); LYMPH # 1.3 10*3/uL (1.3-4.4); LYMPH % 31.4 % (27.0-41.0); MEAN CELL VOLUME 103.3 fl (80.0-94.0); MEAN CORPUSCULAR HGB 31.3 pg (27.0-31.0); MEAN CORPUSCULAR HGB CONC 30.3 g/dl (33.0-37.0); MEAN PLATELET VOLUME 10.2 fl (9.6-12.3); MONO # 0.4 10*3/uL (0.1-1.0); MONO % 9.6 % (3.0-9.0); NEUT # 2.3 10*3/uL (2.3-7.9); NEUT % 56.6 % (47.0-73.0); PLATELET COUNT AUTOMATED 163 10*3/uL (130-400); RED BLOOD COUNT 3.67 10*6/uL (4.50-5.90); RED CELL DISTRI WIDTH 13.8 % (0-14.5); SGPT/ALT < 7 U/L (5-49); WHITE BLOOD COUNT 4.1 10*3/uL (4.8-10.8)
[2023-05-26] MEDS ORDERED: CHAIR CUSHION DEVICE ONE (06:21)
[2023-05-26 08:00] VITALS: BP 158/90
[2023-05-26] MEDS ORDERED: Enoxaparin Sodium 40 MG/0.4 ML SYR SC SCH (10:00)
[2023-05-26] MEDS ORDERED: NEUPRO 6 MG/24 HR TD SCH (10:00)
[2023-05-26] MEDS ORDERED: Enoxaparin Sodium 30 MG/0.3 ML SYR SC SCH (10:00)
[2023-05-26] MEDS ORDERED: RIVASTIGMINE 13.3 MG/24 HR TDM T SCH (10:00)
[2023-05-26] MEDS ORDERED: Cholecalciferol 2,000 UNIT TABLET (50 MCG) PO SCH (10:00)
[2023-05-26] MEDS ORDERED: RYTARY PO SCH (10:00)
[2023-05-26] MEDS ORDERED: HEEL PROTECTOR DEVICE ONE (10:10)
[2023-05-26 12:00] VITALS: BP 98/62
[2023-05-26] MEDS ORDERED: SODIUM CHLORIDE 0.9% IV SCH (12:00)
[2023-05-26] MEDS ORDERED: AMPICILLIN SODIUM IV SCH (12:00)
[2023-05-26] MEDS ORDERED: MED. FROM HOME 1 EACH EA T SCH (15:00)
[2023-05-26] MEDS ORDERED: Ceftriaxone Sodium 1 GM in SYRINGE INFUSION 10 ML IV SCH (15:00)
[2023-05-26 15:46] VITALS: BP 98/62
[2023-05-26 20:00] VITALS: BP 148/82
[2023-05-26] MEDS ORDERED: MED. FROM HOME 1 EACH EA PO SCH (22:00)
[2023-05-26] MEDS ORDERED: Mirtazapine 15 MG TAB PO SCH (22:00)
[2023-05-27] VITALS: BP 96/54; BP 99/54
[2023-05-27] MEDS ORDERED: Carbidopa/Levodopa 25/100MG 1 TAB TAB PO SCH
[2023-05-27 07:07] LABS: BUN 26 mg/dl (9-23); CHLORIDE 105 mmol/L (98-107); POTASSIUM 3.8 mmol/L (3.4-5.1)
[2023-05-27 08:00] VITALS: BP 150/83
[2023-05-27 12:00] VITALS: BP 148/68
[2023-05-27] MEDS ORDERED: MACROBID100 M1 PO ×2 (13:22)
== END 2023-05-27 16:53 | DRG 71 ==
LOC: ED 11:54 → EDHOLD 15:57 → 4E 20:00
PROVIDERS: Emergency Medicine; Student in an Organized Health Care Education/Training Program; ADMIT Internal Medicine; ATTEND Internal Medicine
DX: G93.41 Metabolic encephalopathy (principal); E44.0 Moderate protein-calorie malnutrition; N30.01 Acute cystitis with hematuria; Z66 Do not resuscitate; N18.30 Chronic kidney disease, stage 3 unspecified; G20.A1 Parkinson's disease without dyskinesia, without mention of fluctuations; F02.80 Dementia in other diseases classified elsewhere, unspecified severity, without behavioral disturbance, psychotic disturbance, mood disturbance, and anxiety; I12.9 Hypertensive chronic kidney disease with stage 1 through stage 4 chronic kidney disease, or unspecified chronic kidney disease; K21.9 Gastro-esophageal reflux disease without esophagitis; D53.9 Nutritional anemia, unspecified; F63.81 Intermittent explosive disorder; B96.89 Other specified bacterial agents as the cause of diseases classified elsewhere; Z51.5 Encounter for palliative care; Z90.49 Acquired absence of other specified parts of digestive tract; Z87.442 Personal history of urinary calculi; Z85.46 Personal history of malignant neoplasm of prostate; Z68.24 Body mass index [BMI] 24.0-24.9, adult

== ENCOUNTER → 2023-06-13 | Outpatient (CLI) | payer OTHER ==
[~2023-06-13] MED LIST changes: +TYLENOL325 M2 PO; +VITAMIN D350 MCG PO
== END | disposition home or self-care (01) ==
LOC: CT 13:34
PROVIDERS: ATTEND Urology
DX: N20.0 Calculus of kidney (principal); N21.0 Calculus in bladder; I71.40 Abdominal aortic aneurysm, without rupture, unspecified; N26.1 Atrophy of kidney (terminal); K76.89 Other specified diseases of liver; J98.11 Atelectasis; Z90.49 Acquired absence of other specified parts of digestive tract

== ENCOUNTER 2023-06-24 07:42 | Emergency (ER) | payer OTHER ==
[~2023-06-24] VITALS: Ht 182.8 cm; Wt 84.9 kg
[2023-06-24 08:07] LABS: BASO % 0.2 % (0.0-1.0); EOS # 0.1 10*3/uL (0.0-0.4); EOS % 1.6 % (1.0-4.0); HEMATOCRIT 36.3 % (42.0-52.0); LYMPH # 1.1 10*3/uL (1.3-4.4); LYMPH % 22.4 % (27.0-41.0); MEAN CELL VOLUME 103.1 fl (80.0-94.0); MEAN CORPUSCULAR HGB 32.7 pg (27.0-31.0); MEAN CORPUSCULAR HGB CONC 31.7 g/dl (33.0-37.0); MEAN PLATELET VOLUME 9.7 fl (9.6-12.3); MONO # 0.5 10*3/uL (0.1-1.0); MONO % 10.8 % (3.0-9.0); NEUT # 3.2 10*3/uL (2.3-7.9); NEUT % 64.4 % (47.0-73.0); PLATELET COUNT AUTOMATED 176 10*3/uL (130-400); RED BLOOD COUNT 3.52 10*6/uL (4.50-5.90); RED CELL DISTRI WIDTH 14.3 % (0-14.5)
[2023-06-24 08:25] LABS: BUN 25 mg/dl (9-23); CHLORIDE 107 mmol/L (98-107)
[2023-06-24 09:36] LABS: BILIRUBIN Negative (Negative); BLOOD 2+ (Negative); CLARITY Clear (Clear); COLOR Yellow (Yellow); GLUCOSE Negative (Negative); KETONE Negative (Negative); LEUKO ESTERASE Trace (Negative); NITRITE Negative (Negative); UROBILINOGEN 0.2 E.U./dl (0.0-1.0)
[2023-06-24 09:44] LABS: BACTERIA TRACE
[2023-06-24] MEDS ORDERED: Fosfomycin Tromethamine 3 GM PDS PO ONE (11:45)
== END 2023-06-24 12:00 | disposition home or self-care (01) ==
LOC: ED 07:42
PROVIDERS: Internal Medicine
DX: N39.0 Urinary tract infection, site not specified (principal); F03.90 Unspecified dementia, unspecified severity, without behavioral disturbance, psychotic disturbance, mood disturbance, and anxiety; I10 Essential (primary) hypertension; F32.A Depression, unspecified; D64.9 Anemia, unspecified; K21.9 Gastro-esophageal reflux disease without esophagitis; E78.00 Pure hypercholesterolemia, unspecified; I48.91 Unspecified atrial fibrillation; F41.9 Anxiety disorder, unspecified; E87.6 Hypokalemia; Z90.49 Acquired absence of other specified parts of digestive tract; Z98.890 Other specified postprocedural states

== ENCOUNTER 2023-07-28 11:35 | Emergency (ER) | payer OTHER ==
[~2023-07-28] VITALS: Ht 180.3 cm; Wt 88.0 kg
[2023-07-28] MEDS ORDERED: MORPHINE Sulfate 2 MG/ML SYR IM ONE (11:45)
[2023-07-28] MEDS ORDERED: PERCOCET 5-3251 EACH PO (13:18)
== END 2023-07-28 16:24 | disposition home or self-care (01) ==
LOC: ED 11:35
DX: S22.41XA Multiple fractures of ribs, right side, initial encounter for closed fracture (principal); F03.90 Unspecified dementia, unspecified severity, without behavioral disturbance, psychotic disturbance, mood disturbance, and anxiety; I10 Essential (primary) hypertension; F32.A Depression, unspecified; D64.9 Anemia, unspecified; K21.9 Gastro-esophageal reflux disease without esophagitis; E78.00 Pure hypercholesterolemia, unspecified; I48.91 Unspecified atrial fibrillation; R73.9 Hyperglycemia, unspecified; E87.6 Hypokalemia; F41.9 Anxiety disorder, unspecified; Z90.49 Acquired absence of other specified parts of digestive tract; Z98.890 Other specified postprocedural states; W01.190A Fall on same level from slipping, tripping and stumbling with subsequent striking against furniture, initial encounter; Y93.89 Activity, other specified; Y92.89 Other specified places as the place of occurrence of the external cause; Y99.8 Other external cause status

== ENCOUNTER 2024-06-23 17:37 | Emergency (ER) | payer OTHER ==
[~2024-06-23] VITALS: Ht 182.8 cm; Wt 90.7 kg
[~2024-06-23 17:37] MED LIST changes: +PERCOCET 5-3251 EACH PO
[2024-06-23 18:12] LABS: BASO % 0.2 % (0.0-1.0); EOS # 0.1 10*3/uL (0.0-0.4); EOS % 0.9 % (1.0-4.0); HEMATOCRIT 38.7 % (42.0-52.0); MEAN CELL VOLUME 104.6 fl (80.0-94.0); MEAN CORPUSCULAR HGB CONC 31.5 g/dl (33.0-37.0); MEAN PLATELET VOLUME 10.2 fl (9.6-12.3); MONO # 0.5 10*3/uL (0.1-1.0); MONO % 8.1 % (3.0-9.0); NEUT % 70.7 % (47.0-73.0); PLATELET COUNT AUTOMATED 176 10*3/uL (130-400); RED CELL DISTRI WIDTH 13.2 % (0-14.5); WHITE BLOOD COUNT 5.7 10*3/uL (4.8-10.8)
[2024-06-23 18:22] LABS: ACT PARTIAL THROMBO TIME 25.9 SECONDS (20.0-32.1)
[2024-06-23 18:36] LABS: ALKALINE PHOSPHATASE 88 U/L (46-116); BUN 16 mg/dl (9-23); CHLORIDE 106 mmol/L (98-107); LIPASE 49 U/L (12-53); POTASSIUM 3.9 mmol/L (3.4-5.1); TOTAL PROTEIN 6.9 gm/dL (6.0-8.0)
[2024-06-23 18:41] LABS: SGPT/ALT < 7 U/L (5-49)
== END 2024-06-23 21:32 | disposition home or self-care (01) ==
LOC: ED 17:37
PROVIDERS: Internal Medicine
DX: D53.9 Nutritional anemia, unspecified (principal); G20.A1 Parkinson's disease without dyskinesia, without mention of fluctuations; Z79.899 Other long term (current) drug therapy; Z90.49 Acquired absence of other specified parts of digestive tract; Z98.890 Other specified postprocedural states